=== PATIENT | female | born 1935 | race Caucasian/White ===

== ENCOUNTER 2016-11-19 04:38 | Inpatient (IN) ==
[2016-11-19] MEDS ORDERED: ASPIRIN PO STA (04:58)
--- NOTE | 2016-11-19 05:32 | EKG Report ---
Test Performed on : 11/19/2016 04:43:12 AM Test Reason : COUGHING/SOB Blood Pressure : / mmHG Vent. Rate : 084 BPM Atrial Rate : 088 BPM P-R Int : 000 ms QRS Dur : 096 ms QT Int : 380 ms P-R-T Axes : 000 058 -54 degrees QTc Int : 449 ms Atrial fibrillation. Possible Anterior infarct , age undetermined Abnormal ECG When compared with ECG of 11-MAR-2014 13:49, Atrial fibrillation. has replaced Sinus rhythm. Nonspecific T wave abnormality now evident in Inferior leads Unconfirmed Result
[2016-11-19 05:39] LABS: MANUAL DIFF NEEDED? NO
[2016-11-19] MEDS ORDERED: DUONEB (A & A) INH ONE (05:43)
[2016-11-19 05:50] LABS: BASO% 0.2 % (0.0-0.8); EOS# 0.04 X1000 (0.0-0.7); EOS% 0.7 % (0.0-10.0); HEMATOCRIT 50.4 % (37.0-47.0); HEMOGLOBIN 16.3 g/dL (12.0-16.0); LYMPH# 0.83 X1000 (1.2-3.4); LYMPH% 14.1 % (20.5-51.1); MCH 31.2 PG (27-31); MCHC 32.3 g/dL (33-37); MCV 96.6 FL (81-99); MONO# 0.59 X1000 (0.11-0.59); MPV 11.5 FL (7.4-10.4); PLT 122 X1000 (130-400); RBC 5.22 XMIL (4.2-5.4)
[2016-11-19 05:51] LABS: ALLEN TEST YES; BLOOD TYPE ARTERIAL; DRAW SITE R RADIAL; METHB 1.3 % (0.0-1.5); O2(CT) 19.4 mL/dL (15.0-23.0); PCO2(98.6) 44 mmHg (35-45); PO2(98.6) 52 mmHg (60-100); SAMPLE BLOOD; SAO2 92.5 % (95.0-100.0); THB 15.5 g/dL (11.5-17.4)
[2016-11-19 05:52] LABS: MODALITY ROOM AIR
[2016-11-19 05:56] LABS: PTT 35.2 Seconds (22.0-36.0)
[2016-11-19 06:24] LABS: INR 2.14; PROTIME 23.6 Seconds (9.2-11.7)
[2016-11-19 06:26] LABS: AGAP 16; ALBUMIN 3.3 g/dL (3.5-5.0); ALKALINE PHOSPHATASE 89 U/L (32-104); BUN 14 mg/dL (8-22); CALCIUM 8.8 mg/dL (8.8-10.2); CHLORIDE 101 mmol/L (98-107); CK PROFILE 60 U/L (24-173); COSMO 288; GOT 21 U/L (10-30); GPT 10 U/L (10-36); MAGNESIUM 1.8 mg/dL (1.5-2.7); POTASSIUM 3.5 mmol/L (3.5-5.1); SODIUM 144 mmol/L (136-145); TCO2 27 mmol/L (25-35); TOTAL BILIRUBIN 0.54 mg/dL (0.20-1.00); TOTAL PROTEIN 7.3 g/dL (6.3-8.3)
[2016-11-19] MEDS ORDERED: LASIX IV ONE (07:22)
[2016-11-19] MEDS ORDERED: LEVAQUIN 750 MG/D5W 750 MG/150 ML IVPB IV ONE (07:23)
--- NOTE | 2016-11-19 07:40 | PROVIDER DOCUMENTATION ---
HPI-Respiratory General - General Chief Complaint: Shortness of Breath Stated Complaint: COUGHING/SOB Time Seen by Provider: 11/19/16 06:11 Allergies/Adverse Reactions: Patient Allergies Allergy/AdvReac Type Severity Reaction Status Date / Time No Known Allergies Allergy Verified 01/05/13 12:54 Home Medications: Home Medication List Medication Instructions Recorded Confirmed Last Taken Type Furosemide [Lasix] 40 mg PO BID 01/05/13 03/10/14 03/09/14 20:00 History Sotalol HCl [Sotalol] 120 mg PO BID 01/05/13 03/10/14 03/10/14 08:00 History Warfarin [Coumadin] 5 mg PO QHS 01/05/13 03/10/14 03/09/14 21:30 History Vit A/Vit C/Vit E/Zinc/Copper 1 each PO DAILY 08/22/13 03/10/14 03/10/14 08:00 History [I-Caps Areds Softgel] Spironolactone 25 mg PO DAILY 03/10/14 03/10/14 03/09/14 08:00 History - History of Present Illness-Resp Nature of Presenting Problem: SOB with dry cough X 5 days, worsened since last night and started to have low grade fever. Pt uses C-PAP for ARACELI at home, but does not use home O2. Pt denies h/o DVT/PE/DMII/OK. Exertion makes the SOB worse. Quality of Pain: reports: none Severity in ED: reports: moderate Onset/Duration: reports: 5 days ago Timing: reports: still present Context: denies: recent foreign travel, recent URI, out of meds Exposure: reports: unknown cause Cough Quality/Degree: reports: no cough Modifying Factors: improves with: oxygen, rest. worse with: exertion, lying down Associated Symptoms: reports: cough, flu-like symptoms, nasal congestion, shortness of breath, short of breath. denies: wheezing Similar Symptoms Previously?: Yes Recently seen or treated by another doctor?: No Review of Systems - Adult - REVIEW OF SYSTEMS - ADULT Constitutional: reports: no symptoms reported, fever, fatique Eyes: reports: no symptoms reported Ears, Nose, Mouth & Throat: reports: no symptoms reported Cardiovascular: reports: no symptoms reported Respiratory: reports: see HPI, cough, dyspnea on exertion, shortness of breath, wheezing. denies: hemoptysis Gastrointestinal: reports: no symptoms reported Genitourinary: reports: no symptoms reported Musculoskeletal: reports: no symptoms reported Integumentary: reports: no symptoms reported All Other Systems: Reviewed and Negative Past History - Adult - PAST MEDICAL HISTORY-ADULT Review of Records: reports: Old Records Reviewed, Nursing Assessment Review, Medications Reviewed Cardiovascular: reports: A-Fib, CHF, HTN, heart valve problem (mitral valve-- repaired). denies: CAD - PRIOR SURGERIES/PROCEDURES Surgical/Procedure History: reports: other (cardiac ablation 2013, Mitral valve repair) Physical Exam-General - PHYSICAL EXAM-ADULT Initial Vital Signs Reviewed: Yes - CONSTITUTIONAL General Appearance: alert, no apparent distress - EYES Eyes: PERRL/EOMI, pink conjunctivae - HEAD, EARS, NOSE, MOUTH & THROAT HENMT: normocephalic/atraumatic, moist mucous membranes - NECK Neck: non-tender, full range of motion, supple - RESPIRATORY Respiratory: chest non-tender, no pleuratic chest pain, no respiratory distress , no accessory muscle use, rales, rhonchi, wheezing. negative: accessory muscle use, crackles - CARDIOVASCULAR Cardiovascular: normal peripheral pulses, regular rate, rhythm, no edema, no gallop - GASTROINTESTINAL (ABDOMEN) Abdominal Exam: normal bowel sounds, non tender, soft, no organomegaly - MUSCULOSKELETAL Extremity: normal range of motion, no calf tenderness, swelling, tenderness. negative: calf tenderness (2+ pitting edema b/l LE), erythema, inflammation - SKIN Integumentary: normal color, normal turgor, warm/dry - NEUROLOGIC Neurologic: grossly normal, no motor/sensory deficits - PSYCHIATRIC Psych/Mental Status: normal mood/affect, normal thought content, normal thought process, oriented x 3 Progress - PLAN OF CARE/RESULTS Progress/Plan/Lab Results: Vital Signs - 8 hr 11/19/16 04:50 11/19/16 05:45 11/19/16 06:07 Temperature 97.7 F Pulse Rate 84 77 76 Respiratory Rate 26 H 31 H 18 Blood Pressure 174/96 192/107 O2 Sat by Pulse Oximetry 92 L 90 L Laboratory Results - last 24 hr 11/19/16 11/19/16 11/19/16 05:10 05:10 05:10 WBC 5.90 RBC 5.22 Hgb 16.3 H Hct 50.4 H MCV 96.6 MCH 31.2 H MCHC 32.3 L RDW Std Deviation 14.5 Plt Count 122 L MPV 11.5 H Neut % (Auto) 75.0 Lymph % (Auto) 14.1 L Reeves % (Auto) 10.0 H Eos % (Auto) 0.7 Baso % (Auto) 0.2 Neut # (Auto) 4.43 Lymph # (Auto) 0.83 L Reeves # (Auto) 0.59 Eos # (Auto) 0.04 Baso # (Auto) 0.01 PT INR PTT (Actin FS) D-Dimer 0.56 H Specimen Type Sample Site pH pCO2 pO2 HCO3 Base Excess Oxyhemoglobin ABG O2 Sat (Calculated) ABG O2 Saturation ABG Carboxyhemoglobin ABG Methemoglobin Isaías Test A-a O2 Difference Total Hemoglobin Lactate Blood Gas Modality FiO2 % Sodium 144 Potassium 3.5 Chloride 101 Carbon Dioxide 27 Anion Gap 16 BUN 14 Creatinine 0.8 Estimated GFR/1.73 m2 > 60 BUN/Creatinine Ratio 18 Glucose 114 H Calculated Osmolality 288 Calcium 8.8 Magnesium 1.8 Total Bilirubin 0.54 AST 21 ALT 10 Alkaline Phosphatase 89 Creatine Kinase 60 Troponin T Oex-I-Twkjiwhcklq Pept Total Protein 7.3 Albumin 3.3 L Globulin 4.0 Albumin/Globulin Ratio 0.8 Plasma Lactate 11/19/16 11/19/16 11/19/16 05:10 05:10 05:10 WBC RBC Hgb Hct MCV MCH MCHC RDW Std Deviation Plt Count MPV Neut % (Auto) Lymph % (Auto) Reeves % (Auto) Eos % (Auto) Baso % (Auto) Neut # (Auto) Lymph # (Auto) Reeves # (Auto) Eos # (Auto) Baso # (Auto) PT 23.6 H INR 2.14 PTT (Actin FS) 35.2 D-Dimer Specimen Type Sample Site pH pCO2 pO2 HCO3 Base Excess Oxyhemoglobin ABG O2 Sat (Calculated) ABG O2 Saturation ABG Carboxyhemoglobin ABG Methemoglobin Isaías Test A-a O2 Difference Total Hemoglobin Lactate Blood Gas Modality FiO2 % Sodium Potassium Chloride Carbon Dioxide Anion Gap BUN Creatinine Estimated GFR/1.73 m2 BUN/Creatinine Ratio Glucose Calculated Osmolality Calcium Magnesium Total Bilirubin AST ALT Alkaline Phosphatase Creatine Kinase Troponin T < 0.010 Cbb-Q-Ytlllykdfst Pept 1706 H Total Protein Albumin Globulin Albumin/Globulin Ratio Plasma Lactate 11/19/16 11/19/16 05:10 05:41 WBC RBC Hgb Hct MCV MCH MCHC RDW Std Deviation Plt Count MPV Neut % (Auto) Lymph % (Auto) Reeves % (Auto) Eos % (Auto) Baso % (Auto) Neut # (Auto) Lymph # (Auto) Reeves # (Auto) Eos # (Auto) Baso # (Auto) PT INR PTT (Actin FS) D-Dimer Specimen Type ARTERIAL Sample Site R RADIAL pH 7.40 pCO2 44 pO2 52 L HCO3 26.2 H Base Excess 2.0 Oxyhemoglobin 89.2 L* ABG O2 Sat (Calculated) 19.4 ABG O2 Saturation 92.5 L ABG Carboxyhemoglobin 2.40 ABG Methemoglobin 1.3 Isaías Test YES A-a O2 Difference 43.0 Total Hemoglobin 15.5 Lactate 1.20 Blood Gas Modality ROOM AIR FiO2 % 21.0 Sodium Potassium Chloride Carbon Dioxide Anion Gap BUN Creatinine Estimated GFR/1.73 m2 BUN/Creatinine Ratio Glucose Calculated Osmolality Calcium Magnesium Total Bilirubin AST ALT Alkaline Phosphatase Creatine Kinase Troponin T Bwe-K-Racyouixcud Pept Total Protein Albumin Globulin Albumin/Globulin Ratio Plasma Lactate 2.0 Orders Category Date Time Status Cardiac Monitoring DIRECTED Care 11/19/16 04:59 Active Saline Loc NOW Care 11/19/16 04:59 Active CHEST-1 VIEW [RAD] Stat Exams 11/19/16 04:59 Taken ABG [RESP] Routine Lab 11/19/16 05:41 Completed BLOOD CULTURE [BLDCUL] Stat Lab 11/19/16 05:40 Received CBC WITH ELECTRONIC DIFF [HEME] Stat Lab 11/19/16 05:10 Completed CK PROFILE [SP CHEM] Stat Lab 11/19/16 05:10 Completed COMPREHENSIVE METABOLIC PANEL [CHEM] Stat Lab 11/19/16 05:10 Completed D-DIMER [CHEM] Stat Lab 11/19/16 05:10 Completed LACTATE, PLASMA [CHEM] Stat Lab 11/19/16 05:10 Completed MAGNESIUM [CHEM] Stat Lab 11/19/16 05:10 Completed PRO B-NATRIURETIC PEPTIDE Stat Lab 11/19/16 05:10 Completed PROTIME WITH INR [COAG] Stat Lab 11/19/16 05:10 Completed PTT [COAG] Stat Lab 11/19/16 05:10 Completed TROPONIN T Stat Lab 11/19/16 05:10 Completed Albuterol 2.5MG/Ipratrop 0.5MG [Duoneb (A & A)] Med 11/19/16 05:43 Discontinued 3 ml INH NOW ONE Furosemide [Lasix] Med 11/19/16 07:22 Discontinued 60 mg IV NOW ONE Levofloxacin 750 mg/D5w [Levaquin 750 mg/D5w] Med 11/19/16 07:23 Active 750 mg in 150 ml IV NOW Aerosol Treatments Routine Oth 11/19/16 05:44 Completed Aerosol Treatments Stat Oth 11/19/16 05:44 Completed EKG [EKG] Stat Ther 11/19/16 04:39 Draft Result Diagrams: 11/19/16 05:10 11/19/16 05:10 - XRAY 1 XRAY Study: Chest Impression: Abnormal (Pulmonary edema) - CONSULTS/PCP/HOSPITALIST Notification Time Discussed: 07:46 Reason/Comments: Admit to Dr. Hamilton Departure - Departure Time of Disposition Decision: 07:45 DIAGNOSIS: Dyspnea CHF (congestive heart failure) Qualifiers: Congestive heart failure type: unspecified congestive heart failure type Congestive heart failure chronicity: acute Qualified Code(s): I50.9 - Heart failure, unspecified Disposition: ADMITTED INPATIENT 09 Certified Medical Emergency: Emergent Condition: Stable Referrals and Follow-Ups: Fredis Hamilton MD [Primary Care Provider] -
--- NOTE | 2016-11-19 08:25 | Diag Imaging Result Document ---
PROCEDURE NAME: CHEST-1 VIEW - 11/19/2016 PORTABLE CHEST: COMPARISON: 03/10/2014. FINDINGS: The lungs are well expanded. The heart is enlarged. No consolidation. No pleural effusion is identified. IMPRESSION: Cardiomegaly.
[2016-11-19] MEDS ORDERED: SOLU-MEDROL IV ONE (08:30)
[2016-11-19] MEDS ORDERED: DOXYCYCLINE PO SCH (09:00)
[2016-11-19] MEDS: CARDIZEM CD PO SCH (10:30)
[2016-11-19] MEDS: ZYLOPRIM PO SCH (10:30)
[2016-11-19] MEDS: TOPROL XL PO SCH (10:31)
[2016-11-19] MEDS: DIOVAN PO SCH (10:31)
[2016-11-19] MEDS: ALBUTEROL NEB INH SCH ×3 (11:11→19:49)
--- NOTE | 2016-11-19 12:15 | CONSULTATION ---
DATE OF CONSULTATION: 11/19/2016 INDICATION: Congestive heart failure. HISTORY OF PRESENT ILLNESS: Ms Hernandez is an 80-year-old white female who previously followed with Dr. Owens, but currently follows with Dr. Meier. She was last seen in our office on the . She presented for complaints of shortness of breath that seemed to have been going on for around 24-48 hours with a much worse episode occurring around 3 o'clock in the morning. She woke up to go to the restroom and got up to ambulate to the bathroom. Upon ambulating back to the bed, she got extremely short of breath and subsequently was brought into the ER. She has noted a significant amount of wheezing at home. Her pCO2 was 44 on presentation with a PO2 of 52 and that was on room air. Her O2 saturation on that study was 92%. She has not reported any orthopnea or worsening of lower extremity edema. She does seem to have chronic issues with lower extremity edema. She previously was on Lasix and is unclear when that was discontinued, but was notably not on it during Dr. Meier's visit. PAST MEDICAL HISTORY: Her past medical history is significant for: 1. Atrial fibrillation that is chronic, maintained on Coumadin. 2. History of a minimally invasive mitral valve repair in 2006. 3. Hypertension. 4. History of DVT. 5. 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 SOCIAL HISTORY: She does not smoke. She is . Her is present in the room and at bedside. No tobacco. No alcohol or illicit drugs. FAMILY HISTORY: Significant for brother with coronary disease. REVIEW OF SYSTEMS: A 10 system review of systems is negative except for those things mentioned in HPI. PHYSICAL EXAMINATION: Vital signs: Presently she is afebrile. Her heart rate is 79. Her blood pressure is 170/99. Generally: She is in no acute distress. She is very pleasant. HEENT: Oropharynx is moist. Normal dentition. Eye examination is pink conjunctivae, white sclerae. Neck: Examination shows no obvious thyromegaly or thyroid tenderness. Cardiovascular: She sounds to be in an irregularly irregular rhythm consistent with atrial fibrillation rate controlled. She has 1 to 2+ chronic appearing lower extremity edema with chronic venous stasis changes. JVP was not visualized, but did not appear to be elevated. Chest: Notable for prominent and very loud expiatory wheezes heard throughout. No increased work of breathing. Abdomen: Soft, nontender, nondistended. No obvious organomegaly. Skin: Warm and dry throughout without any rashes. Neurological: She is moving all extremities well. Cranial nerves 2-12 are intact without any sensation deficits. PERTINENT DATA: She does have evidence for cardiomegaly on her chest x-ray. No pleural effusions. No infiltrates. EKG shows atrial fibrillation, rate of 84 beats per minute. Otherwise relatively unremarkable study. Her laboratory data shows a white count of 5.9. Hematocrit is 50. Platelet count is 122,000. INR is 2.14. D-dimer is 0.56. Her ABG is as detailed above in the HPI. Sodium 144, potassium 3.5. Her BUN is 14, creatinine 0.8. Magnesium level is 1.8. ProBNP is 1706. Albumin is a little bit low at 3.3. ASSESSMENT: Dyspnea likely multifactorial and consisting of possible diastolic heart failure as well as potentially reactive airways disease. PLAN: She currently is on albuterol. In addition, Lasix has been provided. We will follow up with laboratories in the morning. An echo has been ordered. I have instructed her in a low- sodium diet. We will continue to follow with you. She is currently on Levaquin as well as IV steroids. cc: MD Fredis Fontaine MD
[2016-11-19] MEDS: COUMADIN PO SCH (20:09)
[2016-11-19] MEDS: LASIX IV SCH (20:10)
[2016-11-19] MEDS: DOXYCYCLINE PO SCH (20:31)
[2016-11-19] MEDS: SOLU-MEDROL IV SCH (20:31)
--- NOTE | 2016-11-20 02:24 | HISTORY AND PHYSICAL ---
CHIEF COMPLAINT: Shortness of breath. PRESENT ILLNESS: Ms. Hernandez is an 80-year-old woman with a long history of obstructive sleep apnea, mitral valve repair for mitral insufficiency, chronic atrial fibrillation. She presented to the emergency room early this morning with a 3-4 day history of increasing shortness of breath, cough, productive of scant sputum. She denies any fever or chills. She has had several days of a scratchy throat and runny nose. She was followed by Dr. Owens, but has seen Dr. Meier once and was scheduled for an outpatient echocardiogram later this week. She denies any chest pain. She has had minimal, if any orthopnea and no PND. She sleeps sometimes with CPAP, but often without it. She has a long history of mild polycythemia and I have suspected nocturnal hypoxemia. I do not recall any previous episodes of congestive heart failure. PAST MEDICAL HISTORY: Remarkable for chronic atrial fibrillation, carotid atherosclerosis, essential hypertension, obstructive sleep apnea, mitral insufficiency. PAST SURGICAL HISTORY: Remarkable for minimally invasive mitral valve repair in 2006 at [place]. HOME MEDICATIONS: Coumadin 5 mg at bedtime, fish oil 1000 mg daily, allopurinol 200 mg daily, diltiazem CD 180 mg daily, furosemide 40 mg daily, indomethacin p.r.n. for gout, metoprolol ER 100 mg daily, valsartan/hydrochlorothiazide 160/25 one daily for hypertension. FAMILY HISTORY: Father had a stroke. Siblings with a history of heart attacks and seizures. SOCIAL HISTORY: She is and lives with her . She does not use alcohol or tobacco. She is Yars[place]ism of [place]. IMMUNIZATIONS: She has had a previous Pneumovax in 2006. REVIEW OF SYSTEMS: General: No fever, chills, night sweats, weight loss or sleep difficulty. HEENT: Vision and hearing are normal without recent changes. She has some age-related macular degeneration. Cardiovascular: No recent chest pain, diaphoresis, dizziness. She has chronic ankle and pedal edema. No palpitations, PND, syncope. ProBNP 2-1/2 years ago was 1300. Respiratory: See HPI. GI: Appetite has been good. No abdominal pain, constipation, diarrhea, hematemesis, melena, nausea or vomiting. : No dysuria, hematuria or nocturia. Musculoskeletal: She is on allopurinol for recurrent attacks of gout. Some mild degenerative aching as well. Neurologic: No dizziness or falls. No history of head trauma. She has a mild intention tremor which is improved on metoprolol. PSYCHOLOGIC: No history of memory, mood or thought disorders.Endocrine: No history of diabetes mellitus thyroid disease. She was recently started on very low dose of thyroxine. Hematologic: No abnormal bleeding or easy bruising. PHYSICAL EXAMINATION: VITAL SIGNS: Temperature is 98.2 degrees, blood pressure 133/87, pulse 75, respirations 22, O2 saturation 96% on 2 L, 90% on room air. GENERAL APPEARANCE: Obese elderly white female, somewhat plethoric face in no acute distress. HEENT EXAM: Extraocular movements are intact. Pupils equal, round, reactive to light. Oropharynx is benign. NECK: Supple with no adenopathy, JVD, thyromegaly or bruits. CARDIOVASCULAR: Irregularly irregular rhythm. Apical rate of 82. S1-S2 are unremarkable. I do not appreciate an S3 or an S4. She has moderate brawny edema both ankles and lower legs. LUNGS: There is diffuse musical wheezing throughout with perhaps a few crackles in both bases. Air movement is fair with some prolongation of expiratory phase. ABDOMEN: Soft, minimally obese and nontender with no organomegaly. Bowel sounds are unremarkable. MUSCULOSKELETAL: She has 2+ Heberden's nodes at multiple PIP joints. Pedal pulses are difficult to palpate due to edema. DERMATOLOGIC: Normal skin turgor. No rashes. Her skin on her lower legs is intact without weeping but there are mild to moderate stasis changes present. NEUROLOGIC EXAM: She is alert, responsive and talkative with normal mental status. Cranial nerve examination is unremarkable and not appreciate any focal asymmetry. PSYCHIATRIC: She is alert and oriented with appropriate mood and affect. DATABASE: Chest x-ray shows cardiomegaly without obvious infiltrates or effusions or pulmonary vascular redistribution. Her white blood count 5900, hemoglobin 16.3, hematocrit 50.4%, platelet count is 122,000. INR is 2.14. ABG on room air pH 7.4, pCO2 44, PO2 52. Chemistry profile. Electrolytes are normal. BUN and creatinine 14 and 0.8, glucose 114. Liver enzymes are normal. Albumin 3.3, proBNP 1706, CPK and troponin are negative. ASSESSMENT: 1. Acute dyspnea with hypoxemia probably due to asthmatic bronchitis although cannot exclude small component of congestive heart failure. 2. Chronic atrial fibrillation on warfarin with therapeutic INR. 3. Obstructive sleep apnea with polycythemia, suspect intermittent compliance. 4. History of mitral regurgitation, status post repair. 5. Chronic pedal edema probably due to venous valvular incompetence. TREATMENT PLAN: She is much improved after some breathing treatments and I ordered cautious IV Solu-Medrol and a Cardiology consult. She will probably require several days in the hospital to improve so I made her full inpatient admission. cc: Fredis Hamilton MD
[2016-11-20 07:56] LABS: AGAP 15; BUN 18 mg/dL (8-22); CALCIUM 9.2 mg/dL (8.8-10.2); CHLORIDE 98 mmol/L (98-107); COSMO 286; POTASSIUM 3.2 mmol/L (3.5-5.1); SODIUM 141 mmol/L (136-145); TCO2 28 mmol/L (25-35)
[2016-11-20] MEDS: ALBUTEROL NEB INH SCH ×4 (08:20→20:15)
[2016-11-20] MEDS: TOPROL XL PO SCH (09:25)
[2016-11-20] MEDS: DOXYCYCLINE PO SCH ×2 (09:25→23:29)
[2016-11-20] MEDS: SOLU-MEDROL IV SCH ×2 (09:25→23:29)
[2016-11-20] MEDS: LASIX IV SCH ×2 (09:25→23:29)
[2016-11-20] MEDS: DIOVAN PO SCH (09:25)
[2016-11-20] MEDS: CARDIZEM CD PO SCH (09:25)
[2016-11-20] MEDS: ZYLOPRIM PO SCH (09:26)
[2016-11-20] MEDS: KLOR-CON PO SCH ×2 (09:26→23:29)
--- NOTE | 2016-11-20 13:13 | ECHO REPORT ---
ORDER DATE: 11/19/2016 INDICATION: An 80-year-old female with CHF and mitral valve disease. M-MODE MEASUREMENTS: Parasternal windows were poor. Right ventricle: 2.8 cm. Left atrium: 4.4 cm. Aortic root: 3.2 cm. SUMMARY OF 2-DIMENSIONAL IMAGIN. Left ventricular function is normal with an ejection fraction of 56% or better. In some views it is 60% or better. 2. Acoustic windows are limited. 3. The mitral valve shows calcification and the leaflets of the mitral valve appear to be slightly restricted. Maximum gradient across the mitral valve is 9 mm. Mean gradient is 4 mm. Color flow mapping indicates a mild degree of regurgitation. The patient probably has a trivial degree of mitral valve stenosis. 4. The aortic valve shows sclerosis. Color flow mapping indicates a mild degree of regurgitation. There is no evidence of any significant gradient across the outflow tract of the left ventricle. 5. The tricuspid valve shows a [id number]-dx-qwhefjbn degree of regurgitation. 6. The inferior vena cava is mildly enlarged. 7. Pulmonary pressure is estimated on the order of 42 mmHg to 47 mmHg. 8. The pulmonic valve looks normal. Color flow mapping indicates mild regurgitation. 9. There is no pericardial effusion and no sign of thrombus. 10.The atria are probably mildly enlarged although the visualization of them is difficult due to the patient's obesity. SUMMARY: In summary, this study shows: 1. Normal left ventricular systolic function. 2. Calcification of the mitral annulus with a mild degree of mitral valve stenosis and mild degree of regurgitation. 3. Ryia-la-pxzcknob pulmonary hypertension on the order of 42 mmHg to 47 mmHg. 4. Mild degree of aortic regurgitation. There is no aortic stenosis. Clinical correlation is recommended. cc: MD Fredis Hidalgo MD
[2016-11-20] MEDS: COUMADIN PO SCH (23:29)
[2016-11-21] MEDS: LASIX IV SCH (08:21)
[2016-11-21] MEDS: ZYLOPRIM PO SCH (08:21)
[2016-11-21] MEDS: CARDIZEM CD PO SCH (08:21)
[2016-11-21] MEDS: KLOR-CON PO SCH (08:21)
[2016-11-21] MEDS: TOPROL XL PO SCH (08:22)
[2016-11-21] MEDS: DIOVAN PO SCH (08:22)
[2016-11-21] MEDS: DOXYCYCLINE PO SCH (08:23)
[2016-11-21] MEDS: SOLU-MEDROL IV SCH (08:23)
[2016-11-21 08:49] VITALS: BP 152/95
[2016-11-21] MEDS: ALBUTEROL NEB INH SCH (08:59)
--- NOTE | 2016-11-21 10:01 | DISCHARGE SUMMARY ---
ADMISSION DATE: 11/19/2016 DISCHARGE DATE: FINAL DIAGNOSES: 1. Acute asthmatic bronchitis with hypoxemia. 2. Obstructive sleep apnea with polycythemia. 3. Chronic atrial fibrillation. 4. Mitral valve insufficiency, status post mitral valve repair. 5. Essential hypertension. PRESENT ILLNESS: Mrs. Hernandez is an 80-year-old woman with a long history of the above medical problems, who presented to the emergency room with a 3-4 day history of increasing shortness of breath, cough, without fever or chills. PHYSICAL EXAMINATION: General Appearance/Vital Signs: Revealed an O2 saturation 90% on room air. She is somewhat plethoric, obese, elderly white female, in no acute distress. Lung Examination: Was remarkable for diffuse musical wheezing throughout. Perhaps very rare crackles in both bases. Air movement was fair with prolonged expiratory phase. DIAGNOSTICS: Chest x-ray showed cardiomegaly without obvious infiltrates or effusions, or pulmonary vascular distribution. Her white blood count was normal. Hemoglobin 16.3, hematocrit 50.4%. ABG on room air pH 7.4, pCO2 44, pO2 52. HOSPITAL COURSE: She was admitted to the medical floor and placed on gambling monitor and treated for both asthmatic bronchitis and congestive heart failure. Was seen in consultation by cardiology and echocardiogram documented normal left ventricular function. She did have calcification of the mitral annulus and a mild degree of stenosis and regurgitation. She had mild pulmonary hypertension and mild aortic regurgitation. With oral antibiotics and IV Solu-Medrol, her wheezing rapidly resolved. At the time of discharge she is moving air well with no wheezing and has a room air saturation of 98%. She did have some intermittent confusion at night and I feel this is probably a transient steroid effect and that the best treatment is to return home to her usual surroundings. I discussed with the family we will do some memory testing when she returns. DISCHARGE MEDICATIONS: 1. Doxycycline 100 mg daily for 5 days. 2. Prednisone 20 mg q.a.m. for 5 days. 3. Toprol-XL 100 mg daily. 4. Valsartan 80 mg daily. 5. Warfarin 5 mg at bedtime. 6. Allopurinol 100 mg, two tablets daily. 7. Diltiazem XT 180 mg daily. cc: MD SHELLIE Owusu
== END 2016-11-21 10:05 | disposition home or self-care (01) ==
LOC: ED 04:38 → 3N 09:09
PROVIDERS: ADMIT Internal Medicine; ATTEND Internal Medicine

== ENCOUNTER 2018-12-13 00:37 | Inpatient (IN) ==
[2018-12-13 02:16] LABS: BASO# 0.01 X1000 (0.0-0.2); BASO% 0.1 % (0.0-0.8); EOS# 0.12 X1000 (0.0-0.7); EOS% 1.1 % (0.0-10.0); HEMATOCRIT 45.4 % (37.0-47.0); HEMOGLOBIN 14.9 g/dL (12.0-16.0); IMM GRAN# 0.04 X1000 (0.0-0.04); IMM GRAN% 0.4 % (0.0-0.5); LYMPH# 0.92 X1000 (1.2-3.4); LYMPH% 8.3 % (20.5-51.1); MCH 31.9 PG (27-31); MCHC 32.8 g/dL (33-37); MCV 97.2 FL (81-99); MONO# 1.15 X1000 (0.11-0.59); MONO% 10.4 % (1.7-9.3); MPV 10.5 FL (7.4-10.4); NEUT# 8.78 X1000 (1.4-6.5); NEUT% 79.7 % (42.2-75.2); PLT 159 X1000 (130-400); RBC 4.67 XMIL (4.2-5.4); RDW 12.6 % (11.5-14.5); WBC 11.02 X1000 (4.8-10.8)
[2018-12-13 03:08] LABS: ALB/GLOB RATIO 1.2; CALCIUM 8.4 mg/dL (8.8-10.2); CREATININE 1.1 mg/dL (0.5-0.9); POTASSIUM 3.6 mmol/L (3.5-5.1); TOTAL BILIRUBIN 0.4 mg/dL (0.20-1.00); TOTAL PROTEIN 5.6 g/dL (6.3-8.3)
--- NOTE | 2018-12-13 07:03 | Diag Imaging Result Doc PS360 ---
EXAM: CHEST-PORTABLE HISTORY: possible hemothorax TECHNIQUE: Portable chest single view COMPARISON: 12/11/2018 FINDINGS: The heart is enlarged. There are infiltrates in the mid and lower left lung with small left effusion. No change in the right portacatheter. Right lung is clear. IMPRESSION: Left lower lung infiltrates and atelectasis with a small pleural effusion Electronically signed by Ahmet Mark 12/13/2018 7:01 AM
--- NOTE | 2018-12-13 07:04 | PROVIDER DOCUMENTATION ---
This chart was entered by Lyndsey Lozano Scribe, acting as scribe for Markus Cruz MD. HPI-Abdominal Pain/GI Problem - General Source: patient - History of Present Illness-ABD Nature of Presenting Problems: pt is 82/F presenting to ED w/ L breast pain that radiates through to her shoulders. Pt sts that the pain has felt better since she has been in the ED. She had fluid drained from pleural effusion yesterday and was todl to come to the ED if she had sharp pains. Pt has hx of HTN, CHF L breast can and pleural effusions. Abdominal Pain Onset Location: reports: [facility] Pain Radiation: reports: shoulder (L shoulder) Quality of Pain: reports: stabbing Severity in ED: reports: mild Onset/Duration: reports: just prior to arrival Timing: reports: gone now Activities at Onset: reports: none Exposure to sick contacts?: No Modifying Factors: improves with: nothing Associated Symptoms: reports: denies symptoms. denies: cough Last BM: unsure Rectal Pain: reports: none Bruising or Bleeding Gums?: No Similar Symptoms Previously?: No Recently seen or treated by another doctor?: No <Markus Cruz - Last Filed: 12/13/18 07:03> <Lexis Thomas - Last Filed: 12/13/18 07:53> - General Stated Complaint: sever back pain / abdominal pain Time Seen by Provider: 12/13/18 01:21 Allergies/Adverse Reactions: Patient Allergies Allergy/AdvReac Type Severity Reaction Status Date / Time No Known Allergies Allergy Verified 12/11/18 07:08 Home Medications: Home Medication List Medication Instructions Recorded Confirmed Last Taken Type Ranitidine [Zantac] 150 mg PO DAILY 04/17/17 12/11/18 12/11/18 07:00 History Donepezil HCl 1 tab PO DAILY 02/07/18 12/11/18 12/11/18 07:00 History Acetaminophen [Tylenol] 650 mg PO Q4H PRN PRN tablet 02/12/18 12/11/18 2 Weeks Ago Rx ~11/27/18 Diltiazem C.d. [Cardizem Cd] 180 mg PO DAILY capsule 02/12/18 12/11/18 12/11/18 07:00 Rx Ipratropium 0.03% Nasal Walsh 2 spray HELEN QAM #1 bottle 02/12/18 12/11/18 12/11/18 07:00 Rx [Atrovent 0.03% Nasal Walsh] Metoprolol Succinate E.r. [Toprol 50 mg PO QHS #39 tab 02/12/18 12/11/18 12/11/18 07:00 Rx Xl] Potassium Chloride E.r. [Klor-Con] 10 meq PO BID tablet 02/12/18 12/11/18 12/11/18 07:00 Rx Rivaroxaban [Xarelto] 10 mg PO DAILY tablet 02/12/18 12/11/18 12/09/18 Rx Losartan Potassium 25 mg PO DAILY 12/11/18 12/11/18 12/11/18 07:00 History Torsemide 100 mg PO DAILY 12/11/18 12/11/18 12/11/18 07:00 History Review of Systems - Adult - REVIEW OF SYSTEMS - ADULT Constitutional: reports: no symptoms reported. denies: chills, fever Eyes: reports: no symptoms reported Ears, Nose, Mouth & Throat: reports: no symptoms reported Cardiovascular: reports: chest pain (L chest pain, under breast) Respiratory: reports: no symptoms reported Gastrointestinal: reports: abdominal pain Genitourinary: reports: no symptoms reported Musculoskeletal: reports: no symptoms reported Integumentary: reports: no symptoms reported Neurological: reports: no symptoms reported. denies: headache/migraines Psychiatric: reports: no symptoms reported Endocrine: reports: no symptoms reported Hematologic/Lymphatic: reports: no symptoms reported Allergic/Immunologic: reports: no symptoms reported All Other Systems: Reviewed and Negative <Markus Cruz - Last Filed: 12/13/18 07:03> Past History - Adult - PAST MEDICAL HISTORY-ADULT Review of Records: reports: Old Records Reviewed, Nursing Assessment Review, Medications Reviewed, Social history reviewed & non-contributory. Major Childhood Illnesses: reports: denies history Cardiovascular: reports: A-Fib, CHF, HTN, heart valve problem (mitral valve--repaired). denies: CAD Respiratory: reports: denies history Gastrointestinal: reports: denies history Obstetrical/Gynecological: reports: denies history Genitourinary: reports: denies history Musculoskeletal: reports: denies history Neurological: reports: denies history Psychiatric: reports: denies history Endocrine/Immune: reports: denies history Other Conditions: reports: denies history - PRIOR SURGERIES/PROCEDURES Surgical/Procedure History: reports: reviewed, not pertinent, other (cardiac ablation 2013, Mitral valve repair) - IMMUNIZATION STATUS Childhood Immunizations: See Nurse Assessment Flu Vaccine: See Nurse Assessment - FAMILY HISTORY Family History: reviewed, not pertinent - SOCIAL HISTORY Living Situation: family <Markus Cruz - Last Filed: 12/13/18 07:03> Physical Exam-General - PHYSICAL EXAM-ADULT Initial Vital Signs Reviewed: Yes - CONSTITUTIONAL General Appearance: appears well, alert, no apparent distress - EYES Eyes: PERRL/EOMI, pink conjunctivae - HEAD, EARS, NOSE, MOUTH & THROAT HENMT: normocephalic/atraumatic, moist mucous membranes, normal ENT inspection, TMs normal, pharynx normal - NECK Neck: non-tender, full range of motion, normal inspection - RESPIRATORY Respiratory: chest non-tender, lungs clear, normal breath sounds - CARDIOVASCULAR Cardiovascular: regular rate, rhythm - GASTROINTESTINAL (ABDOMEN) Abdominal Exam: normal bowel sounds, non tender, soft - LYMPHATIC Lymphatic: no adenopathy - MUSCULOSKELETAL Back Exam: normal inspection, no CVA tenderness, no vertebral tenderness Extremity: normal range of motion, non-tender, normal gait, normal inspection - SKIN Integumentary: normal color, normal turgor, warm/dry - NEUROLOGIC Neurologic: surgical dressing maker II-XII nml as tested, grossly normal, no motor/sensory deficits - PSYCHIATRIC Psych/Mental Status: normal mood/affect, normal thought content, normal thought process, oriented x 3 <Markus Cruz - Last Filed: 12/13/18 07:03> Progress - PLAN OF CARE/RESULTS Progress/Plan/Lab Results: Vital Signs - 8 hr 12/13/18 00:52 Temperature 98.5 F Pulse Rate 79 Respiratory Rate 18 Blood Pressure 100/61 O2 Sat by Pulse Oximetry 93 L Orders Category Date Time Status CHEST-PORTABLE [RAD] Stat Exams 12/13/18 00:45 Taken BNP [PRO B-NATRIURETIC PEPTIDE] Stat Lab 12/13/18 01:25 Uncollected CBC WITH ELECTRONIC DIFF [HEME] Stat Lab 12/13/18 00:45 Uncollected CK PROFILE [SP CHEM] Stat Lab 12/13/18 00:45 Uncollected COMPREHENSIVE METABOLIC PANEL [CHEM] Stat Lab 12/13/18 00:45 Uncollected TROPONIN T Stat Lab 12/13/18 00:45 Uncollected EKG [EKG] Stat Ther 12/13/18 01:25 Ordered Result Diagrams: 12/13/18 02:02 12/13/18 02:02 - EKG 1 Time of EKG reading by physician:: 02:12 EKG Read and Signed by:: Markus Cruz EKG Interpretation (*Must complete 3 of following elements*): Abnormal (atrial fibrillation with a competing junctional pacemaker. Low voltage QRS Cannot rule out anterior infarct, age undetermined Abnormal ECG) Rate: 83 Rhythm: paced rhythm [place]: normal QRS: normal [place] Interval: normal ST Wave: normal - CHANGE OF SHIFT REPORT (ED Provider) 1 Report Given and Care Transferred to:: Dr Thomas Time of Transfer: 07:00 Items Pending: Labs, XRAY Results <Markus Cruz - Last Filed: 12/13/18 07:03> - PLAN OF CARE/RESULTS Progress/Plan/Lab Results: Vital Signs - 8 hr 12/13/18 00:52 12/13/18 01:08 12/13/18 04:00 Temperature 98.5 F Pulse Rate 79 Respiratory Rate 18 Blood Pressure 100/61 105/61 O2 Sat by Pulse Oximetry 93 L 94 L 92 L 12/13/18 04:30 Temperature Pulse Rate Respiratory Rate Blood Pressure O2 Sat by Pulse Oximetry 95 Laboratory Results - last 24 hr 12/13/18 12/13/18 12/13/18 02:02 02:02 02:02 WBC 11.02 H RBC 4.67 Hgb 14.9 Hct 45.4 MCV 97.2 MCH 31.9 H MCHC 32.8 L RDW Std Deviation 12.6 Plt Count 159 MPV 10.5 H Immature Gran % (Auto) 0.4 Neut % (Auto) 79.7 H Lymph % (Auto) 8.3 L [place] % (Auto) 10.4 H Eos % (Auto) 1.1 Baso % (Auto) 0.1 Immature Gran # (Auto) 0.04 Neut # (Auto) 8.78 H Lymph # (Auto) 0.92 L [place] # (Auto) 1.15 H Eos # (Auto) 0.12 Baso # (Auto) 0.01 Sodium 140 Potassium 3.6 Chloride 98 Carbon Dioxide 28 Anion Gap 14 BUN 24 H Creatinine 1.1 H Estimated GFR/1.73 m2 47 BUN/Creatinine Ratio 22 Glucose 99 Calculated Osmolality 283 Calcium 8.4 L Total Bilirubin 0.40 AST 16 ALT 10 Alkaline Phosphatase 91 Creatine Kinase 71 Troponin T 0.015 Vao-M-Zqatczviiln Pept Total Protein 5.6 L Albumin 3.0 L Globulin 2.6 Albumin/Globulin Ratio 1.2 12/13/18 02:02 WBC RBC Hgb Hct MCV MCH MCHC RDW Std Deviation Plt Count MPV Immature Gran % (Auto) Neut % (Auto) Lymph % (Auto) [place] % (Auto) Eos % (Auto) Baso % (Auto) Immature Gran # (Auto) Neut # (Auto) Lymph # (Auto) [place] # (Auto) Eos # (Auto) Baso # (Auto) Sodium Potassium Chloride Carbon Dioxide Anion Gap BUN Creatinine Estimated GFR/1.73 m2 BUN/Creatinine Ratio Glucose Calculated Osmolality Calcium Total Bilirubin AST ALT Alkaline Phosphatase Creatine Kinase Troponin T Qnm-N-Wfxsxanzpcb Pept 1216 H Total Protein Albumin Globulin Albumin/Globulin Ratio Orders Category Date Time Status CHEST-PORTABLE [RAD] Stat Exams 12/13/18 00:45 Completed BLOOD CULTURE [BLDCUL] Stat Lab 12/13/18 07:36 Uncollected BNP [PRO B-NATRIURETIC PEPTIDE] Stat Lab 12/13/18 02:02 Completed CBC WITH ELECTRONIC DIFF [HEME] Stat Lab 12/13/18 02:02 Completed CK PROFILE [SP CHEM] Stat Lab 12/13/18 02:02 Completed COMPREHENSIVE METABOLIC PANEL [CHEM] Stat Lab 12/13/18 02:02 Completed LACTATE, PLASMA [CHEM] Stat Lab 12/13/18 07:36 Uncollected TROPONIN T Stat Lab 12/13/18 02:02 Completed CefTRIAXONE [Rocephin] 1 gm Med 12/13/18 07:37 Active 0.9% Sodium Chloride Inj [Ns] 50 ml IV NOW EKG [EKG] Stat Ther 12/13/18 01:25 Ordered Result Diagrams: 12/13/18 02:02 12/13/18 02:02 - CONSULTS/PCP/HOSPITALIST Notification #1 *Consult/PCP/Hospitalist*: Dr. العلي Time Discussed: 07:53 Consult Disposition: Will see in ED, Admit <Lexis Thomas - Last Filed: 12/13/18 07:53> Departure <Markus Cruz - Last Filed: 12/13/18 07:03> - Departure Date of Disposition Decision: 12/13/18 Time of Disposition Decision: 07:51 Certified Medical Emergency: Emergent - Critical Care Note This patient required my direct & personal management of CC.: No <Lexis Thomas - Last Filed: 12/13/18 07:53> - Departure DIAGNOSIS: Pneumonia, CHF (congestive heart failure) Disposition: ADMITTED INPATIENT 09 Condition: Good Referrals and Follow-Ups: Fredis Hamilton MD [Primary Care Provider] - Attestation - Physician/ RADHA Attestation Patient care was provided by Advanced Practice Provider:: No The physician spent face to face time with patient:: Yes Advanced Practice Provider documentation review:: Supervising physician onsite and consulted in the evaluation and care of this patient. The physician did have a face to face encounter with the patient. <Markus Cruz - Last Filed: 12/13/18 07:03> - Physician/ RADHA Attestation The physician spent face to face time with patient:: Yes Advanced Practice Provider documentation review:: Supervising physician onsite and consulted in the evaluation and care of this patient. The physician did have a face to face encounter with the patient. <Lexis Thomas - Last Filed: 12/13/18 07:53> This chart was documented by the indicated scribe, (Lyndsey Lozano Scribe) and accurately reflects the services I performed and decisions made by me, Markus Cruz MD, as attested by the provider's signature.
[2018-12-13] MEDS ORDERED: ROCEPHIN 1 GM in NS 50 ML IV ONE (07:37)
--- NOTE | 2018-12-13 08:27 | HISTORY AND PHYSICAL ---
HISTORY OF PRESENT ILLNESS: He is an 82-year-old patient of Dr. Fredis Hamilton. Apparently had lung pleurocentesis done on Friday (this is Friday). Complaining of some shortness of breath and nonproductive cough or she had just white sputum by her description and just general malaise. Came into the emergency room mainly with shortness of breath and appears she has a left sided pneumonia. 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 She has had history of carotid atherosclerosis and hypertension. PAST SURGICAL HISTORY: Mitral valve replacement. ALLERGIES: No known drug allergies. FAMILY HISTORY: Noncontributory. SOCIAL HISTORY: Denies use of tobacco, alcohol, or illicit drugs. REVIEW OF MEDICATIONS: She appears to be on diltiazem 180 mg b.i.d., Aricept 5 mg a day, Lasix 40 mg a day, metoprolol 100 mg a day, Zantac 150 mg b.i.d., Xarelto 10 mg a day, Lasix 40 mg a day, Diovan 80 mg a day. REVIEW OF SYSTEMS: General: No weight gain or loss. No fever or chills. By her report, just general malaise and cough. HEENT: No change in visual or hearing acuity. Respiratory: Increased dyspnea with exertion and cough and bronchial irritation. Cardiovascular: No chest pain or tachy palpitation. Gastrointestinal and Genitourinary: No gross hematuria, dysuria. Musculoskeletal/Neurologic: No significant complaints. Endocrinologic/hematologic: No significant history. Skin: No rashes or adenopathy reported. PHYSICAL EXAMINATION: VITAL SIGNS: Temperature 98.5 degrees, pulse 79, respirations 18, blood pressure 105/61. HEENT: Pupils are equal round. LUNGS: Clear anterolateral and posterior. CVP less than 6 cm from the right atrium. CARDIOVASCULAR: Regular rhythm and rhythm and rate without murmur or S3. ABDOMEN: Soft. SKIN: Warm and dry. Height 5 feet 7 inches. No pedal edema. Skin without rash. No lesions seen in oral or nasal mucosa. NECK: Supple. No thyromegaly. LABORATORY STUDIES: White count 11,020, hematocrit 45, platelet count 159,000. Sodium 140, potassium 3.6, chloride 98, BUN 24, creatinine 1.1, calcium 8.4, AST 16, ALT 10. Troponin 0.015. Albumin 3.0. Chest x-ray: Left lower lung infiltrate, atelectasis, a small pleural effusion. REVIEW OF HER CURRENT MEDICINE LIST: She is taking Tylenol 650 mg q.4 h. p.r.n., diltiazem CD 180 mg a day, donepezil 1 tablet daily, Atrovent 0.03% nasal spray 2 puffs each nostril daily, losartan 25 mg a day, metoprolol ER 50 mg p.o. at bedtime, potassium chloride ER 10 mEq b.i.d., Zantac 150 mg daily, Xarelto 10 mg a day. LABORATORY STUDIES: Her lab unremarkable. White count mildly elevated. ASSESSMENT AND PLAN: 1. Left-sided infiltrate. She did have her lung tapped, so I will treat her as a community- acquired pneumonia, but broaden the spectrum for possible gram-negative coverage including Pseudomonas. We will give her some bronchodilators and follow another chest x-ray in the morning. 2. History of atrial fibrillation, rate appears controlled. 3. Mitral valve replacement, aware. 4. History of breast cancer, distant history. 5. History of sleep apnea, wears a CPAP. We will check her thyroid, B12, and folate while she is here. Check a sputum for culture. Obtain blood cultures as well and also check a urine for culture. She is not complaining of any urinary symptoms. cc: Isaías العلي MD MTDD
[2018-12-13 08:51] LABS: URINE SOURCE CLEAN CATCH
[2018-12-13 08:59] LABS: BILIRUBIN URINE NEGATIVE (NEGATIVE); BLOOD URINE NEGATIVE (NEGATIVE); COLOR YELLOW; GLUCOSE URINE NEGATIVE (NEGATIVE); KETONE URINE NEGATIVE (NEGATIVE); LEUKOCYTES URINE MODERATE (NEGATIVE); NITRITE URINE NEGATIVE (NEGATIVE); PH URINE 5.5; PROTEIN URINE NEGATIVE (NEGATIVE); SP GRAVITY URINE 1.007; TURBIDITY URINE CLEAR (CLEAR); UROBILINOGEN URINE NORMAL (NORMAL)
[2018-12-13 09:00] LABS: UR EPITHELIAL CELLS <10 /HPF (<10); URINE BACTERIA 4+ /HPF; URINE RBC <10 /HPF (<10)
[2018-12-13] MEDS ORDERED: TYLENOL PO PRN ×2 (09:56)
[2018-12-13] MEDS ORDERED: NS 1,000 ML IV SCH (09:56)
[2018-12-13] MEDS ORDERED: DEMADEX PO SCH (09:56)
[2018-12-13] MEDS ORDERED: ATROVENT 0.03% NASAL SPRAY NAS PRN (09:56)
[2018-12-13] MEDS ORDERED: VANCOMYCIN IV PER PHARMACY MISC SCH (09:56)
[2018-12-13] MEDS: DUONEB (A & A) INH SCH ×4 (11:45→23:40)
[2018-12-13] MEDS ORDERED: VANCOMYCIN 1,500 MG in NS 250 ML IV SCH (13:00)
[2018-12-13] MEDS: KLOR-CON PO SCH ×2 (13:17→23:00)
[2018-12-13] MEDS: ZANTAC PO SCH (13:17)
[2018-12-13] MEDS: DEMADEX PO SCH (13:18)
[2018-12-13] MEDS: COZAAR PO SCH (13:18)
[2018-12-13] MEDS: CARDIZEM CD PO SCH (13:18)
[2018-12-13] MEDS: ARICEPT PO SCH (13:18)
[2018-12-13] MEDS: XARELTO PO SCH (13:18)
[2018-12-13] MEDS: TOPROL XL PO SCH (23:00)
[2018-12-14 07:06] LABS: BASO# 0.01 X1000 (0.0-0.2); BASO% 0.1 % (0.0-0.8); EOS# 0.15 X1000 (0.0-0.7); EOS% 1.9 % (0.0-10.0); HEMATOCRIT 48.2 % (37.0-47.0); HEMOGLOBIN 15.6 g/dL (12.0-16.0); IMM GRAN# 0.02 X1000 (0.0-0.04); IMM GRAN% 0.3 % (0.0-0.5); LYMPH% 10.3 % (20.5-51.1); MCH 31.8 PG (27-31); MCHC 32.4 g/dL (33-37); MCV 98.4 FL (81-99); MONO# 0.75 X1000 (0.11-0.59); MONO% 9.6 % (1.7-9.3); MPV 10.6 FL (7.4-10.4); NEUT# 6.05 X1000 (1.4-6.5); NEUT% 77.8 % (42.2-75.2); PLT 165 X1000 (130-400); RDW 12.8 % (11.5-14.5); WBC 7.78 X1000 (4.8-10.8)
[2018-12-14] MEDS: DUONEB (A & A) INH SCH (07:20)
[2018-12-14 07:28] LABS: ALB/GLOB RATIO 0.9; ALBUMIN 2.9 g/dL (3.5-5.0); CALCIUM 8.5 mg/dL (8.8-10.2); CREATININE 0.9 mg/dL (0.5-0.9); POTASSIUM 3.1 mmol/L (3.5-5.1); TOTAL BILIRUBIN 0.44 mg/dL (0.20-1.00); TOTAL PROTEIN 6.2 g/dL (6.3-8.3)
[2018-12-14 08:01] LABS: T4 6.85 ug/dL (4.60-12.00); TSH 3.11 uIUmL (0.27-4.20)
--- NOTE | 2018-12-14 08:26 | Diag Imaging Result Doc PS360 ---
EXAM: CHEST-2 VIEWS HISTORY: Pneumonia TECHNIQUE: Chest two views COMPARISON: 12/13/2018 FINDINGS: There are infiltrates and atelectasis in the lower left lung in addition to a moderate-sized pleural effusion. The heart remains enlarged. Decreased pulmonary edema. Right lung remains well expanded. No change in the right-sided portacatheter. IMPRESSION: Overall interval improvement. Electronically signed by Ahmet Mark 12/14/2018 8:23 AM
--- NOTE | 2018-12-14 08:33 | EKG Report ---
Test Performed on : 12/13/2018 02:12:44 AM Test Reason : chest pain Blood Pressure : / mmHG Vent. Rate : 083 BPM Atrial Rate : 102 BPM P-R Int : 000 ms QRS Dur : 090 ms QT Int : 380 ms P-R-T Axes : 000 037 166 degrees QTc Int : 446 ms Atrial fibrillation. with a competing junctional pacemaker. Low voltage QRS Cannot rule out Anterior infarct (cited on or before 19-NOV-2016) Abnormal ECG When compared with ECG of 09-FEB-2018 15:08, Vent. rate has increased BY 38 BPM Questionable change in initial forces of Anteroseptal leads QT has lengthened Unconfirmed Result
[2018-12-14] MEDS: COZAAR PO SCH (12:49)
[2018-12-14] MEDS: DEMADEX PO SCH (12:49)
[2018-12-14] MEDS: KLOR-CON PO SCH ×2 (12:50→22:57)
[2018-12-14] MEDS: ARICEPT PO SCH (12:50)
[2018-12-14] MEDS: CARDIZEM CD PO SCH (12:50)
[2018-12-14] MEDS: ZANTAC PO SCH (12:50)
[2018-12-14] MEDS: ROCEPHIN 1 GM in NS 50 ML IV SCH (12:50)
[2018-12-14] MEDS: XARELTO PO SCH (12:51)
[2018-12-14] MEDS ORDERED: NS 500 ML ONE (16:17)
--- NOTE | 2018-12-14 18:31 | ECHO REPORT ---
ORDER DATE: 12/14/2018 INTERPRETING PHYSICIAN: Dr. Johnston REQUESTING PHYSICIAN: CLINICAL INDICATIONS: An 82-year-old female with congestive heart failure, A- fib. M-MODE MEASUREMENTS: Right ventricle: cm. Left ventricle end diastole: 4.2 cm. Left ventricle end systole: 2.5 cm. Posterior wall: 0.6 cm. Interventricular septum: 0.9 cm. Left atrium: 4.3 cm. Aortic root: cm. SUMMARY OF 2-DIMENSIONAL IMAGING: The study is very difficult. The left ventricular function is excellent. Optison was injected to opacify the chamber. The aortic valve shows sclerosis of the cusp. The mitral valve shows calcification of the annulus. Color flow mapping suggests some mitral regurgitation. The study is really difficult and I cannot quantify of the severity of mitral regurgitation in this case. The patient is in atrial fibrillation. Pulse wave Doppler of mitral inflow shows just a single filling wave. Color flow mapping of the aorta suggests mild aortic regurgitation. The tricuspid and pulmonic valves were suboptimally visualized. There is no pericardial effusion, mass or thrombus noted. CONCLUSIONS: Please consider doing a transesophageal echocardiogram to better assess the aortic and mitral valves. cc: MD Pedro Hidalgo MD Russell T. Barr, MD MTDD
[2018-12-14] MEDS: TOPROL XL PO SCH (22:57)
[2018-12-15 07:42] VITALS: BP 119/79
--- NOTE | 2018-12-15 09:56 | DISCHARGE SUMMARY ---
ADMISSION DATE: 12/13/2018 DISCHARGE DATE: 12/15/2018 FINAL DIAGNOSES: 1. Recurrent left pleural effusion, probably due to congestive heart failure. 2. Acute and chronic diastolic left ventricular dysfunction. 3. History of mitral valve repair. 4. History of breast cancer. 5. Acute cystitis, multiple organisms cultured. 6. Chronic atrial fibrillation. 7. Obstructive sleep apnea. HISTORY OF PRESENT ILLNESS: Ms. Hernandez is an 82-year-old woman with a history of multiple medical problems including chronic diastolic congestive heart failure and chronic atrial fibrillation and obstructive sleep apnea, essential hypertension. On the day prior to admission, she underwent an outpatient thoracentesis of the left chest to remove 1.2 L of fluid. This is a chronic and recurrent effusion and is felt to be due to congestive heart failure. During her previous admission last fall, she had cytology performed which was negative for any malignancy. Prior to being sent home on Friday, she was told to return if she had sharp chest pains. Friday morning, she began having some sharp pleuritic type chest pains and returned to the emergency room to rule out a pneumothorax. A chest x-ray showed trace left pleural effusion and possible infiltrates. Her white blood count was 11,000, and she was felt to have possible pneumonia. Admission lab work also documented pyuria and bacteruria. Urine cultures were obtained. HOSPITAL COURSE: She was admitted with possible community acquired pneumonia. However, on further review of chest x-rays, the radiologist felt this was probably some fluid and she received treatment for her urinary tract infection and continued on her heart medicines. She is now asymptomatic and can be discharged. Her echocardiogram here documented normal left ventricular function, sclerosis of the aortic valve, calcification of the mitral annulus, but Dr. Johnston was unable to quantify the severity of her mitral regurgitation. He suggested transesophageal echocardiogram, and I will leave this decision up to her museum educator, Dr. Meier. She is to return to my office in 10 to 14 days for transition of care visit. DISCHARGE MEDICATIONS: Bactrim DS tablets 1 twice a day for 3 additional days, diltiazem CD 180 mg q.a.m. and 120 mg nightly at bedtime, donepezil 5 mg daily, ipratropium nasal spray 0.03% p.r.n. for rhinorrhea, losartan 25 mg daily, metoprolol succinate 50 mg daily, potassium chloride 10 mEq daily, ranitidine 150 mg daily, Xarelto 20 mg daily. cc: Fredis Hamilton MD
[2018-12-15] MEDS: ROCEPHIN 1 GM in NS 50 ML IV SCH (09:58)
[2018-12-15] MEDS: KLOR-CON PO SCH (10:00)
[2018-12-15] MEDS: ARICEPT PO SCH (10:00)
[2018-12-15] MEDS: CARDIZEM CD PO SCH (10:00)
[2018-12-15] MEDS: XARELTO PO SCH (10:00)
[2018-12-15] MEDS: DEMADEX PO SCH (10:01)
[2018-12-15] MEDS: ZANTAC PO SCH (10:01)
[2018-12-15] MEDS: COZAAR PO SCH (10:03)
[2018-12-15] MEDS ORDERED: SEPTRA DS PO SCH (21:00)
== END 2018-12-15 10:30 | disposition home or self-care (01) | DRG 292 ==
LOC: ED 00:37 → 4N 09:21
PROVIDERS: ADMIT Internal Medicine; ATTEND Internal Medicine
CPT/HCPCS: 32421; 32555; 71010; 71020; 71045; 71046; 80048; 80053; 81001; 82550; 83605; 83880; 84436; 84443; 84484; 85025; 85027; 85610; 85730; 87040; 87077; 87088; 87186; 93005; 93306; 94640; 94799; 96365; 97163; 99285; A9270; C8929; J0696; J3370; J7030; J7040; J7050; Q9957

== ENCOUNTER 2019-02-05 06:37 | Observation (INO) ==
[2019-02-05 07:47] LABS: INR 1.03; PROTIME 14.3 Seconds (11.0-16.0); PTT 24.4 Seconds (22.3-41.8)
--- NOTE | 2019-02-05 09:14 | Diag Imaging Result Doc PS360 ---
CHEST-2 VIEWS - 02/05/2019 INDICATION: POST LEFT THORA COMPARISON: 02/02/2019 FINDINGS: There has been successful drainage of the large left pleural effusion. The left lung has not yet fully reexpanded. There is about 30% pneumothorax. IMPRESSION: Incomplete reexpansion of the left lung post thoracentesis. The patient will be monitored, and repeat chest x-rays will be performed in two hours. Electronically signed by Yayo Brower 02/05/2019 9:12 AM
[2019-02-05 09:25] LABS: BODY FLUID SOURCE PLEURAL FLUID
[2019-02-05 10:24] LABS: GLUCOSE BODY FLUID 114 mg/dL; LDH BODY FLUID 138 U/L; TOTAL PROT BODY FLUID 3.8 g/dL
--- NOTE | 2019-02-05 11:05 | Diag Imaging Result Doc PS360 ---
CHEST-2 VIEWS - 02/05/2019 11:03 AM INDICATION: post thoracentesis COMPARISON: 9:04 AM FINDINGS: There is a stable moderate left pneumothorax, about 30%. The right lung remains clear. Stable cardiomegaly. IMPRESSION: Stable moderate left pneumothorax. Electronically signed by Yayo Brower 02/05/2019 11:03 AM
--- NOTE | 2019-02-05 11:20 | Diag Imaging Result Doc PS360 ---
US THORACENTESIS W/IMAGE GUIDE - 02/05/2019 INDICATION: pleural effusion TECHNIQUE: The risks and benefits of the procedure were discussed with the patient. All questions were answered. Written and verbal informed consent was obtained. Overlying skin was prepped and draped in sterile fashion. Anesthesia was achieved with injection of 10 cc of 1% lidocaine. COMPARISON: 12/11/2018 FINDINGS: 1.6 L was successfully drained from the left lung base. The patient remained asymptomatic after the procedure. However, on follow-up chest x-rays, there was poor reexpansion of the left lung, with persistent about 30-40% pneumothorax. The case was discussed with Dr. Cruz. It was decided to admit the patient for monitoring as a precaution. IMPRESSION: Successful left-sided thoracentesis. The left lung did not reexpand. Patient will be admitted. Electronically signed by Yayo Brower 02/05/2019 11:17 AM
[2019-02-05] MEDS ORDERED: SALINE LOCK IV FLUID XX ONE (12:37)
[2019-02-05] MEDS ORDERED: TYLENOL PO PRN (12:37)
[2019-02-05] MEDS ORDERED: NS 500 ML IV ONE (14:32)
--- NOTE | 2019-02-05 14:58 | Diag Imaging Result Doc PS360 ---
EXAM: CHEST-2 VIEWS HISTORY: pneumothorax TECHNIQUE: Inspiratory and expiratory chest, two views COMPARISON: 11:03 AM FINDINGS: There is a moderate-sized left pneumothorax. This has not increased in size compared to the prior study. There has been no other interval change in the chest. IMPRESSION: Stable moderate sized left pneumothorax. Electronically signed by Ahmet Mark 02/05/2019 2:56 PM
--- NOTE | 2019-02-05 16:13 | HISTORY AND PHYSICAL ---
CHIEF COMPLAINT: Pneumothorax following therapeutic and diagnostic thoracentesis. HISTORY OF PRESENT ILLNESS: Mrs. Hernandez is an 83-year-old white female who was scheduled for an elective left thoracentesis today as an outpatient. Radiologist removed 1.6 liters of straw-colored effusion under ultrasound guidance. Postoperatively, she had a 30% to 40% pneumothorax, which was unchanged on chest film two hours later. She continues to be asymptomatic with adequate oxygen saturation of 97% on two liters of nasal cannula. After discussion with Dr. Meier, her manager [employer], we decided to admit her overnight for observation to make sure that the pneumothorax does not progress. She is currently sitting up in bed and has finished lunch and has no complaints, with no chest pain or shortness of breath. She did have significant dyspnea on exertion and some mild shortness of breath prior to this procedure. This is a recurrent pleural effusion that was first tapped one year ago. Cytology at that time showed no evidence of lung cancer or breast cancer. It was a borderline exudate. She again had a therapeutic thoracentesis done 12/11/2018. Her chest x-ray prior to this one showed a moderate left-sided effusion, approximately 50% up the chest wall. PAST MEDICAL HISTORY: Remarkable for chronic atrial fibrillation, chronic diastolic left ventricular dysfunction, recurrent pleural effusion, in April of 2017 she had an abnormal mammogram and underwent lumpectomy of the left breast with an axillary node dissection. She had a port placed for chemotherapy and completed this greater than a year ago. PAST SURGICAL HISTORY: Remarkable for mitral valve repair at [place] greater than ten years ago. SOCIAL HISTORY: She was recently approximately four months ago. Her daughter is her primary caregiver, although they live separately. She visits daily. She also has a son in [place]. She does not use alcohol or tobacco. HOME MEDICATIONS: Diltiazem extended release 120 mg daily, donepezil 10 mg daily for memory, losartan 25 mg daily, metoprolol ER 50 mg at bedtime, potassium chloride 10 mEq twice a day, ranitidine 150 mg daily, Xarelto 20 mg daily, and torsemide 100 mg daily. ALLERGIES: She has no known allergies. REVIEW OF SYSTEMS: GENERAL: Her appetite has been good with no recent weight loss. HEENT: Vision and hearing are adequate without recent changes. RESPIRATORY: Mild dyspnea on exertion but no cough or reactive airway disease or sputum production. CARDIOVASCULAR: She denies significant orthopnea or PND. She has intermittent pedal edema. No recent chest pain, palpitations, or syncope. GI: No nausea, vomiting, diarrhea, or abdominal pain. She has regular bowel movements without constipation. : She has a history of occasional urinary tract infections, but no history of renal stones. NEUROPSYCHIATRIC: Positive history of mild dementia. No history of depression or thought disorders. No history of strokes or seizures. PHYSICAL EXAMINATION: VITAL SIGNS: Temperature 97.5, pulse 75, slightly irregular, respirations 22, blood pressure 124/73, O2 saturation is 97% on 4 L oxygen. GENERAL APPEARANCE: This is an alert, pleasant, talkative, elderly white female, finishing lunch, lying on a stretcher in no acute distress. SKIN: Warm, pink, and dry. HEENT: Pupils equal, round, and reactive to light. Extraocular movements intact. Oropharynx is benign. NECK: Supple with no adenopathy, JVD, or bruits. LUNGS: Clear bilaterally with adequate breath sounds, even on the left side. No crackles or wheezes. CARDIOVASCULAR: There is a nearly regular rhythm approximately 66 per minute, apical rate. No S3 or murmurs are appreciated. ABDOMEN: Obese. Soft. Nontender with active bowel sounds. GENITAL AND RECTAL: Exams are deferred. EXTREMITIES: Mild brawny edema in both ankles. NEUROLOGIC: Mental status is at her baseline, quite conversational. She moves all extremities on command. Gait is not tested. ASSESSMENT: 1. Post thoracentesis pneumothorax, clinically stable and asymptomatic. 2. Recurrent left pleural effusion, rule out occult malignancy. 3. Chronic diastolic congestive heart failure. 4. Mild dementia. 5. History of mitral valve repair. 6. History of breast cancer. 7. Chronic atrial fibrillation. 8. Obstructive sleep apnea. TREATMENT PLAN: Will admit for overnight observation. I have asked Dr. Meier to monitor her for cardiovascular issues and consult with Dr. Beavers. She might, with recurrent effusion, be a candidate for a tunneled pleural catheter for future drainage. cc: Fredis Hamilton MD
[2019-02-05 16:24] LABS: BASO# 0.02 X1000 (0.0-0.2); BASO% 0.2 % (0.0-0.8); EOS# 0.04 X1000 (0.0-0.7); EOS% 0.4 % (0.0-10.0); HEMATOCRIT 51.4 % (37.0-47.0); HEMOGLOBIN 16.5 g/dL (12.0-16.0); IMM GRAN# 0.04 X1000 (0.0-0.04); IMM GRAN% 0.4 % (0.0-0.5); LYMPH# 1.02 X1000 (1.2-3.4); LYMPH% 9.6 % (20.5-51.1); MCH 31.9 PG (27-31); MCHC 32.1 g/dL (33-37); MCV 99.4 FL (81-99); MONO# 0.89 X1000 (0.11-0.59); MONO% 8.3 % (1.7-9.3); MPV 10.9 FL (7.4-10.4); NEUT# 8.67 X1000 (1.4-6.5); NEUT% 81.1 % (42.2-75.2); PLT 155 X1000 (130-400); RBC 5.17 XMIL (4.2-5.4); RDW 13.8 % (11.5-14.5); WBC 10.68 X1000 (4.8-10.8)
[2019-02-05 16:41] LABS: ALB/GLOB RATIO 0.8; ALBUMIN 3.1 g/dL (3.5-5.0); CREATININE 1.1 mg/dL (0.5-0.9); POTASSIUM 3.7 mmol/L (3.5-5.1); TOTAL BILIRUBIN 0.61 mg/dL (0.20-1.00)
[2019-02-05 18:58] LABS: BASO# 0.01 X1000 (0.0-0.2); BASO% 0.1 % (0.0-0.8); EOS# 0.07 X1000 (0.0-0.7); EOS% 0.5 % (0.0-10.0); HEMATOCRIT 46.3 % (37.0-47.0); IMM GRAN# 0.03 X1000 (0.0-0.04); IMM GRAN% 0.2 % (0.0-0.5); LYMPH# 1.33 X1000 (1.2-3.4); LYMPH% 10.3 % (20.5-51.1); MCH 32.1 PG (27-31); MCHC 32.4 g/dL (33-37); MCV 99.1 FL (81-99); MONO# 1.19 X1000 (0.11-0.59); MONO% 9.2 % (1.7-9.3); MPV 10.4 FL (7.4-10.4); NEUT# 10.31 X1000 (1.4-6.5); NEUT% 79.7 % (42.2-75.2); PLT 154 X1000 (130-400); RBC 4.67 XMIL (4.2-5.4); RDW 13.7 % (11.5-14.5); WBC 12.94 X1000 (4.8-10.8)
[2019-02-05 19:05] LABS: URINE SOURCE CLEAN CATCH
[2019-02-05 19:09] LABS: BILIRUBIN URINE NEGATIVE (NEGATIVE); BLOOD URINE NEGATIVE (NEGATIVE); COLOR YELLOW; GLUCOSE URINE NEGATIVE (NEGATIVE); KETONE URINE NEGATIVE (NEGATIVE); LEUKOCYTES URINE LARGE (NEGATIVE); NITRITE URINE NEGATIVE (NEGATIVE); PROTEIN URINE NEGATIVE (NEGATIVE); SP GRAVITY URINE 1.011; TURBIDITY URINE CLEAR (CLEAR); UROBILINOGEN URINE NORMAL (NORMAL)
[2019-02-05 19:10] LABS: UR EPITHELIAL CELLS <10 /HPF (<10); URINE BACTERIA 4+ /HPF; URINE RBC <10 /HPF (<10); URINE WBC 20-40 /HPF (<10)
--- NOTE | 2019-02-05 20:44 | CONSULTATION ---
DATE OF CONSULTATION: 02/05/2019 IMPRESSION: 1. Left-sided pneumothorax of 30 to 40 percent following left side thoracentesis today. 2. Recurrent left pleural effusion of large size of unclear etiology. Patient initially had left pleural effusion a year ago and at that time was diagnosed with left breast cancer. Patient has had recurrent left pleural effusion couple months ago and now very recently. Cytology on previous specimen negative. 3. Mitral valve disorder with history of previous mitral ring annuloplasty for management of mitral regurgitation in January 2007. 4. Chronic atrial fibrillation. 5. Stage IV breast cancer diagnosed last year. The patient has history of previous breast cancer in December 2016 involving the left breast with a large left breast mass extending to the skin surface with metastatic left axillary adenopathy. The patient underwent radiation therapy and chemotherapy thereafter. 6. Hypertension. RECOMMENDATIONS: 1. Observe in hospital for next 24 hours on telemetry. 2. Supplemental oxygen. 3. Pulmonary medicine consultation. HISTORY: This 83-year-old white female with past history of breast cancer, mitral valve ring repair for mitral regurgitation, chronic atrial fibrillation, chronic congestive heart failure with preserved left ventricular ejection fraction, and hypertension came into [facility] today as an outpatient for left side thoracentesis. She has had progressive dyspnea the last several weeks and recently had evaluation which disclosed large left pleural effusion. She has had left pleural effusion in the past, a year ago and again a few months ago. She underwent thoracentesis on the left this morning after holding her anticoagulation for 2 days. She developed some atypical chest pain and followup chest x-ray showed 30 to 40 percent left pneumothorax. She denies shortness of breath. There has been no angina. Her atypical chest pain has resolved. PAST MEDICAL HISTORY: 1. Breast cancer. 2. Status post mitral valve ring repair approximately 13 years ago for mitral regurgitation. 3. Chronic atrial fibrillation. 4. Hypertension. 5. Previous DVT in the past. 6. Recurrent left pleural effusion. 7. Obstructive sleep apnea. 8. Carotid atherosclerosis. PAST SURGICAL HISTORY: 1. Includes mitral valve ring repair/annuloplasty in January 2007 for mitral regurgitation, left thoracentesis last year and again in November of this year, left mastectomy with left axillary lymph node dissection December 2016. ALLERGIES: She is allergic or intolerant to red dye and celecoxib. MEDICATIONS PRIOR TO ADMISSION: As listed. SOCIAL HISTORY: She is a nonsmoker and does not use alcohol. FAMILY HISTORY: Negative for premature coronary disease. REVIEW OF SYSTEMS: Pulmonary: Noteworthy for increasing dyspnea of late. There has been some cough productive of what is described as foamy clear sputum. Gastrointestinal: Noncontributory. Constitutional: Negative/noncontributory. Remainder review of systems negative/noncontributory with 14 total systems reviewed. PHYSICAL EXAMINATION: General: This is an obese, elderly white female in no distress on room air. Vital signs: Blood pressure 97/62, heart rate 68, oxygen saturation 95%. HEENT: Extraocular movements appear intact. Mucous membranes moist. Neck: Supple. No jugular venous distention. There are no carotid bruits. Chest: Auscultation of the chest reveals a few inspiratory crackles in the bases particularly left base. Cardiac Exam: Reveals a irregular rate and rhythm without appreciable murmur or gallop. Abdomen: Soft. Bowel sounds are normal. Extremities: Demonstrate trace edema with prominent chronic venous stasis changes as well as some venous varicosities. EKG is pending. LABORATORY DATA: Includes a pro time 14.3, INR 1.03, PTT 24.4. Additional laboratory studies pending. cc: MD Fredis Bruner MD
[2019-02-05] MEDS: PERIDEX MT SCH (20:59)
[2019-02-05] MEDS: KLOR-CON PO SCH (20:59)
[2019-02-05] MEDS ORDERED: TOPROL XL PO SCH (21:00)
--- NOTE | 2019-02-06 03:09 | PULMONOLOGY CONSULTATION ---
DATE: 02/05/2019 REQUESTING PHYSICIAN: Dr. Pedro Meier. REASON FOR CONSULTATION: Recurrent left-sided pleural effusion with thoracentesis and pneumothorax. HISTORY OF PRESENT ILLNESS: Ms. Hernandez is an 83-year-old, white female who underwent surgical resection of the left breast for breast cancer, 05/03/2017. The patient had an ER positive, DC negative, HER-2/alisha negative breast cancer with metastatic disease to 09/04 lymph nodes. The patient reports she did not tolerate the complete course of chemotherapy, she did not tolerate radiation therapy, and that she did not tolerate a pill for prevention of recurrence of her disease (tamoxifen?) The patient was evaluated by this practitioner for a small to moderate left- sided effusion 1 year ago. Thoracentesis was borderline transudative, at that time, and cytology was negative. She has had evidence of progressive increase in asymmetric effusion. The patient has been followed by Dr. Meier, and patient underwent an ultrasound-guided thoracentesis today, 1.6 L of fluid was removed from the left hemithorax. She reports her dyspnea has significantly diminished. Postprocedure chest x-ray reveals a moderate left-sided pneumothorax. PAST MEDICAL HISTORY: 1. History of lymph node positive breast cancer, as per above. 2. Obstructive sleep apnea. 3. History of heart failure. 4. Status post mitral valve repair. 5. Chronic atrial fibrillation. 6. Mild cognitive impairment. 7. Prior history of deep vein thrombosis with pulmonary emboli. 8. Gastroesophageal reflux. 9. Hypertension. SOCIAL HISTORY: She is a never smoker. No alcohol use. REVIEW OF SYSTEMS: Notable for increasing shortness of breath and fluctuating lower extremity edema. PHYSICAL EXAMINATION: General: Reveals an obese white female in no distress. She has lost approximately 15 pounds over the last year. Vital signs: Blood pressure 108/66, heart rate 68, respiratory rate 22, oxygen saturation 94% on 2 L per nasal cannula. HEENT: Pupils are equal and reactive. Oropharynx is clear. Neck: Supple. Chest: Diminished breath sounds left base with coarse breath sounds in the lung on the left. Right side is clear. Cardiac: S1, S2. Abdomen: Soft. Extremities: Reveal evidence of recent contraction with increased wrinkling. LABORATORIES: From the pleural fluid, glucose 114, total protein 3.8, LDH 138. White blood count 12.94, hemoglobin 15.0, platelet count 154,000. Sodium 142, potassium 3.7, chloride 96, bicarbonate 31, BUN 21, creatinine 1.1, total protein 7.0, albumin 3.1, globulin fraction 3.9, LDH 295. IMPRESSION: An 83-year-old with history of node positive breast cancer, who presents with progressive increase in size of a left-sided pleural effusion. Pleural fluid is exudative in character. The marked asymmetry of the pleural fluid presentation is of concern for recurrence of disease in the setting of an exudative pleural effusion. However, sometimes chronic pleural effusions can also be exudative in character. She clearly is at risk for recurrence of her breast cancer disease. RECOMMENDATIONS: 1. Await cytology report. 2. Continue to observe pneumothorax. It has been stable on several chest x-rays. 3. Pursue CT scan of the thorax now that the pleural fluid has been removed. 4. Additional recommendations pending hospital course. cc: MD Fredis Chavez MD
--- NOTE | 2019-02-06 07:21 | Diag Imaging Result Doc PS360 ---
EXAM: CHEST-PORTABLE HISTORY: abnormal exam TECHNIQUE: Chest single view COMPARISON: 02/05/2019 FINDINGS: No interval change in the moderate-sized left-sided pneumothorax. Cardiomegaly is present. No change in the right-sided portacatheter. Infiltrates and atelectasis in the lower left lung are unchanged. IMPRESSION: Stable chest Electronically signed by Ahmet Mark 02/06/2019 7:18 AM
[2019-02-06] MEDS: PERIDEX MT SCH (08:47)
[2019-02-06] MEDS: KLOR-CON PO SCH (08:48)
[2019-02-06] MEDS ORDERED: COZAAR PO SCH (09:00)
[2019-02-06] MEDS ORDERED: XARELTO PO SCH (09:00)
[2019-02-06] MEDS ORDERED: ZANTAC PO SCH (09:00)
[2019-02-06] MEDS ORDERED: DEMADEX PO SCH (09:00)
[2019-02-06] MEDS ORDERED: CARDIZEM CD PO SCH (09:00)
[2019-02-06] MEDS ORDERED: ARICEPT PO SCH (09:00)
[2019-02-06 11:38] VITALS: BP 105/69
--- NOTE | 2019-02-06 12:18 | Diag Imaging Result Doc PS360 ---
EXAM: CT THORAX W/O CONTRAST HISTORY: progressive effusion TECHNIQUE: CT chest without contrast COMPARISON: 02/10/2018 FINDINGS: There is a moderate sized left-sided hydropneumothorax. There are infiltrates and atelectasis in the left upper and lower lobes. Minimal atelectasis or scarring in the right lower lobe. The heart is enlarged and there is central vascular distention. Tiny pericardial effusion with trace right pleural effusion. Prominent atherosclerosis. No aortic aneurysm. There is a right subclavian portacatheter. No right-sided pneumothorax. No enlarged lymph nodes. Right lower lobe granuloma. No definite mass identified. IMPRESSION: Moderate sized left-sided hydropneumothorax with atelectasis and/or infiltrates in the left lung This exam was performed using automated exposure control, adjustment of mA or kV according to patient size, and/or use of iterative reconstruction technique. Electronically signed by Ahmet Mark 02/06/2019 12:16 PM
--- NOTE | 2019-02-06 17:57 | PULMONOLOGY PROGRESS NOTE ---
DATE: 02/06/2019 SUBJECTIVE: The patient is awake, alert, and conversant. She denies shortness of breath at rest. OBJECTIVE: Vital Signs: The patient has been afebrile for the last 24 hours. Blood pressure 120/74, heart rate 65, respiratory rate 20, oxygen saturation 98% on 2 L per nasal cannula. HEENT: Pupils are equal and reactive. Oropharynx appears clear. Neck: Supple. Chest: Reveals diminished breath sounds left base. Cardiac exam: S1, S2. Abdomen: Soft and without hepatosplenomegaly. Extremities: Without edema. X-RAYS: Chest x-ray reveals moderate left-sided pneumothorax, cardiomegaly, no improvement. IMPRESSION: An 83-year-old with: 1. Exudative pleural effusion. 2. Iatrogenic pneumothorax following thoracentesis. 3. History of breast cancer status post resection in April 2017 with positive lymph nodes at the time of resection. PLAN: 1. Await cytology report. 2. Await CT scan of the thorax, which has been ordered following thoracentesis. 3. Consider outpatient PET scan if CT scan and pleural effusion are unremarkable. cc: MD Fredis Chavez MD
[2019-02-06 20:56] LABS: BODY FLUID SOURCE PLEURAL FLUID; SPECIMEN PLEURAL FLUID
[2019-02-06 21:02] LABS: WBC BF 288 /cumm
[2019-02-06 21:09] LABS: MONOS 92 %; POLYS 8 %
[2019-02-06 21:25] LABS: AMYLASE BODY FLUID 42 U/L; GLUCOSE BODY FLUID 110 mg/dL; LDH BODY FLUID 104 U/L; TOTAL PROT BODY FLUID 3.7 g/dL
== END 2019-02-06 12:58 | disposition home or self-care (01) ==
LOC: OPS 06:37 → 4N 06:37
PROVIDERS: ADMIT Internal Medicine; ATTEND Internal Medicine Cardiovascular Disease
CPT/HCPCS: 32421; 32555; 71010; 71020; 71045; 71046; 71250; 80053; 81001; 82150; 82945; 83615; 83986; 84157; 85025; 85610; 85730; 87015; 87070; 87077; 87088; 87102; 87116; 87147; 87186; 87205; 87206; 89050; 89051; 94761; 94799; A9270; G0378; G0379; J7040

== ENCOUNTER 2019-02-15 19:21 | Observation (INO) ==
--- NOTE | 2019-02-15 20:24 | Diag Imaging Result Doc PS360 ---
EXAM: CHEST-2 VIEWS INDICATION: short of breath TECHNIQUE: 2 views COMPARISON: 02/15/2019 FINDINGS: The right chest port is stable. The left-sided chest tube is in stable position. The small left apical pneumothorax is approximately stable. There is increased opacity at the left lung base as compared to previous study likely representing a small amount of pleural fluid with adjacent atelectasis and/or infiltrate. Mild interstitial edema is approximately stable. No new consolidation is identified, otherwise. Cardiac silhouette is stable. IMPRESSION: Increasing opacity at the left lung base as compared to the previous study. Stable chest, otherwise. Electronically signed by Supa Goodman 02/15/2019 8:22 PM
--- NOTE | 2019-02-15 21:09 | GENERAL SURGERY CONSULTATION ---
DATE: 02/15/2019 HISTORY OF PRESENT ILLNESS: This is a 83-year-old female, patient of Dr. Duran, who has a left- sided effusion. She underwent a VATS and PleurX catheter drainage. She has a history of breast cancer. She did okay from this, went home, was feeling fine, but developed drainage and saturation of her wound. She came back. Hemodynamically, she has been stable. Chest x-ray shows findings consistent with postoperative period and serosanguineous drainage noted from her dressing. PHYSICAL EXAMINATION: Vital Signs: Heart rate is normal in the 70s to 80s. Oxygen saturations are mid 90s on room air. General: She is alert, in no acute distress. Left PleurX catheter is in place. There are dressings on her trocar sites. There is some serosanguineous drainage noted on the wound. She has no increased work of breathing. Heart: Normal rate, regular rhythm. Abdomen: Soft. Integument: Warm, dry. No labs. I reviewed her chest x-ray that shows possibly some increasing opacity in the lower lobe, trace apical pneumothorax, but no significant pneumothorax. No mediastinal shift. ASSESSMENT AD PLAN: An 83-year-old female with left PleurX catheter placement, patient of Dr. Duran from earlier today. Will admit her for observation overnight. I have asked the hospitalist or one of Dr. Hamilton's partners to see her tonight and admit her for assistance with her medical management. I was going to place Pleur-evac drainage, but we were unable to obtain a drainage catheter device. As such, we will observe her, pulmonary toileting, pain control, with plans for repeat chest x-ray in the morning. We can drain it tomorrow if a significant amount of fluid has reaccumulated. I talked to the daughter and patient. They agree. We will see how she does going forward, but otherwise she is hemodynamically doing very well. cc: Roscoe Bee MD
[2019-02-15 21:10] LABS: BASO# 0.01 X1000 (0.0-0.2); BASO% 0.1 % (0.0-0.8); EOS# 0.01 X1000 (0.0-0.7); EOS% 0.1 % (0.0-10.0); HEMATOCRIT 50.5 % (37.0-47.0); HEMOGLOBIN 16.4 g/dL (12.0-16.0); IMM GRAN# 0.05 X1000 (0.0-0.04); IMM GRAN% 0.4 % (0.0-0.5); LYMPH# 0.66 X1000 (1.2-3.4); LYMPH% 5.8 % (20.5-51.1); MCH 31.8 PG (27-31); MCHC 32.5 g/dL (33-37); MCV 98.1 FL (81-99); MONO# 0.98 X1000 (0.11-0.59); MONO% 8.7 % (1.7-9.3); MPV 9.9 FL (7.4-10.4); NEUT# 9.58 X1000 (1.4-6.5); NEUT% 84.9 % (42.2-75.2); PLT 215 X1000 (130-400); RBC 5.15 XMIL (4.2-5.4); RDW 13.6 % (11.5-14.5); WBC 11.29 X1000 (4.8-10.8)
[2019-02-15 21:27] LABS: ALB/GLOB RATIO 0.8; ALBUMIN 2.9 g/dL (3.5-5.0); CALCIUM 8.5 mg/dL (8.8-10.2); CREATININE 1.2 mg/dL (0.5-0.9); POTASSIUM 4.6 mmol/L (3.5-5.1); TOTAL BILIRUBIN 0.35 mg/dL (0.20-1.00); TOTAL PROTEIN 6.4 g/dL (6.3-8.3)
--- NOTE | 2019-02-15 21:31 | PROVIDER DOCUMENTATION ---
This chart was entered by Heidi Cota Scribe, acting as scribe for Maddi Giordano MD. HPI-Rash/Wound/ReCheck - General Chief Complaint: Post Op Complaint Stated Complaint: POST OP COMPLICATIONS Time Seen by Provider: 02/15/19 19:45 Source: patient, family Allergies/Adverse Reactions: Allergies Allergy/AdvReac Type Severity Reaction Status Date / Time red dye Allergy Severe "messed my Verified 02/15/19 20:12 kidneys up" celecoxib [From Celebrex] Allergy Mild RASH Verified 02/15/19 20:12 Home Medications: Home Medication List Medication Instructions Recorded Confirmed Last Taken Type Ranitidine [Zantac] 150 mg PO DAILY 04/17/17 02/15/19 02/15/19 History Donepezil HCl 10 mg PO DAILY 02/07/18 02/15/19 02/15/19 History Metoprolol Succinate E.r. [Toprol 50 mg PO QHS #39 tab 02/12/18 02/15/19 02/14/19 20:00 Rx Xl] Losartan Potassium 25 mg PO DAILY 12/11/18 02/15/19 02/15/19 History Torsemide 100 mg PO DAILY 12/11/18 02/15/19 02/15/19 History Diltiazem HCl [Diltiazem 24Hr ER] 120 mg PO DAILY 12/13/18 02/15/19 02/15/19 History Rivaroxaban [Xarelto] 20 mg PO DAILY 12/13/18 02/15/19 02/13/19 History Ipratropium 0.03% Nasal [place] 2 spray INTRANASAL DAILY PRN PRN 12/15/18 02/15/19 Unknown Rx [Atrovent 0.03% Nasal [place]] #1 bottle Acetaminophen [Tylenol] 650 mg PO Q6H PRN PRN tab 02/06/19 02/15/19 Unknown Rx Potassium Chloride E.r. [Klor-Con] 20 meq PO DAILY 02/12/19 02/15/19 02/15/19 History Sulfamethoxazole/Trimethoprim 1 tab PO BID 02/12/19 02/15/19 02/14/19 08:00 History [Sulfamethoxazole-Tmp Ds Tablet] Hydrocodone/APAP 7.5 mg/325 mg 1 ea PO Q6H PRN PRN #15 tab 02/15/19 02/15/19 Unknown Rx [[place]-7.5] - History of Present Illness-Dermatology Nature of Presenting Problem: pt is a 83 yr old female presenting with complaint of bleeding from surgical site. daughter reports pt had catheter placed in left lung today to drain fluid, placement completed by Dr Paz, pt discharged home approx 1500. this evening daughter noticed pt had bled through dressing onto clothing from around catheter. pt denies any other complaints. Location: reports: chest (left) Quality: reports: none Severity: reports: mild Onset/Duration: reports: this evening Timing: reports: still present Context/Associated Symptoms: reports: incised wound (catheter placed/draining around catheter) Identifiable cause?: Yes Locality of Occurance: Home Similar Symptoms Previously?: No Recently seen or treated by another doctor?: Yes Review of Systems - Adult - REVIEW OF SYSTEMS - ADULT Constitutional: denies: chills, fever Eyes: reports: no symptoms reported Ears, Nose, Mouth & Throat: reports: no symptoms reported Cardiovascular: reports: no symptoms reported Respiratory: denies: hemoptysis, shortness of breath Gastrointestinal: reports: no symptoms reported Genitourinary: reports: no symptoms reported Musculoskeletal: reports: no symptoms reported Integumentary: reports: no symptoms reported Neurological: reports: no symptoms reported Psychiatric: reports: no symptoms reported Endocrine: reports: no symptoms reported Hematologic/Lymphatic: reports: no symptoms reported Allergic/Immunologic: reports: no symptoms reported All Other Systems: Reviewed and Negative Past History - Adult - PAST MEDICAL HISTORY-ADULT Review of Records: reports: Old Records Reviewed, Nursing Assessment Review, Medications Reviewed, Social history reviewed & non-contributory. Major Childhood Illnesses: reports: denies history Cardiovascular: reports: A-Fib, CHF, HTN, heart valve problem (mitral valve--repaired). denies: CAD Respiratory: reports: denies history Gastrointestinal: reports: denies history Obstetrical/Gynecological: reports: denies history Genitourinary: reports: denies history Musculoskeletal: reports: denies history Neurological: reports: denies history Psychiatric: reports: denies history Endocrine/Immune: reports: denies history Other Conditions: reports: denies history - PRIOR SURGERIES/PROCEDURES Surgical/Procedure History: reports: reviewed, not pertinent, other (cardiac ablation 2013, Mitral valve repair) - IMMUNIZATION STATUS Childhood Immunizations: See Nurse Assessment Flu Vaccine: See Nurse Assessment - FAMILY HISTORY Family History: reviewed, not pertinent - SOCIAL HISTORY Living Situation: family Physical Exam-General - CONSTITUTIONAL General Appearance: appears well, alert, no apparent distress - HEAD, EARS, NOSE, MOUTH & THROAT HENMT: normocephalic/atraumatic - NECK Neck: supple, normal inspection - RESPIRATORY Respiratory: chest non-tender, crackles (bases bilaterally), other (pleurex catheter in place with dressing that is saturated with serosanguinous fluid.) - GASTROINTESTINAL (ABDOMEN) Abdominal Exam: normal bowel sounds, non tender, soft - MUSCULOSKELETAL Extremity: pedal edema (2+ pedel edema bilaterally) - SKIN Integumentary: normal color, warm/dry - PSYCHIATRIC Psych/Mental Status: normal mood/affect, oriented x 3 Progress - PLAN OF CARE/RESULTS Progress/Plan/Lab Results: Vital Signs - 8 hr 02/15/19 19:27 Temperature 97.3 F L Pulse Rate 95 H Respiratory Rate 18 Blood Pressure 96/67 O2 Sat by Pulse Oximetry 97 Laboratory Results - last 24 hr 02/15/19 21:00 WBC 11.29 H RBC 5.15 Hgb 16.4 H Hct 50.5 H MCV 98.1 MCH 31.8 H MCHC 32.5 L RDW Std Deviation 13.6 Plt Count 215 MPV 9.9 Immature Gran % (Auto) 0.4 Neut % (Auto) 84.9 H Lymph % (Auto) 5.8 L Hanson % (Auto) 8.7 Eos % (Auto) 0.1 Baso % (Auto) 0.1 Immature Gran # (Auto) 0.05 H Neut # (Auto) 9.58 H Lymph # (Auto) 0.66 L Hanson # (Auto) 0.98 H Eos # (Auto) 0.01 Baso # (Auto) 0.01 Orders Category Date Time Status CHEST-2 VIEWS [RAD] Stat Exams 02/15/19 19:59 Completed CBC WITH ELECTRONIC DIFF [HEME] Stat Lab 02/15/19 21:00 Completed CMP [COMPREHENSIVE METABOLIC PANEL] [CHEM] Stat Lab 02/15/19 21:00 Received Result Diagrams: 02/15/19 21:00 - XRAY 1 XRAY Study: Chest Impression: Abnormal (Signed EXAM: CHEST-2 VIEWS INDICATION: short of breath TECHNIQUE: 2 views COMPARISON: 02/15/2019 FINDINGS: The right chest port is stable. The left-sided chest tube is in stable position. The small left apical pneumothorax is approximately stable. There is increased opacity at the left lung base as compared to previous study likely representing a small amount of pleural fluid with adjacent atelectasis and/or infiltrate. Mild interstitial edema is approximately stable. No new consolidation is identified, otherwise. Cardiac silhouette is stable. IMPRESSION: Increasing opacity at the left lung base as compared to the previous study. Stable chest, otherwise. Electronically signed by Supa Goodman 02/15/2019 8:22 PM 02/15/192021 Interpreting Physician: Supa Goodman MD Dictated Date/Time: 02/15/192018 cc: Maddi Giordano MD; Fredis Hamilton MD) Comparison with other Films: no changes (02/15/19) - CONSULTS/PCP/HOSPITALIST Notification #1 *Consult/PCP/Hospitalist*: Dr Bee Time Discussed: 20:00 Reason/Comments: Admit to hospitalist, he will come and evaluate patient, order CXR Consult Disposition: Will see in ED #2 Consult: Dr Eaton Time Discussed: 20:45 Consult Disposition: Admit Departure - Departure Date of Disposition Decision: 02/15/19 Time of Disposition Decision: 20:41 DIAGNOSIS: Pleural effusion due to CHF (congestive heart failure) Disposition: ADMITTED INPATIENT 09 Certified Medical Emergency: Emergent Condition: Stable Referrals and Follow-Ups: Fredis Hamilton MD [Primary Care Provider] - - Critical Care Note This patient required my direct & personal management of CC.: No Attestation - Physician/ RADHA Attestation Patient care was provided by Advanced Practice Provider:: No The physician spent face to face time with patient:: Yes Advanced Practice Provider documentation review:: Supervising physician onsite and consulted in the evaluation and care of this patient. The physician did have a face to face encounter with the patient. This chart was documented by the indicated scribe, (Heidi Cota Scribe) and accurately reflects the services I performed and decisions made by me, Maddi Giordano MD, as attested by the provider's signature.
[2019-02-15 22:29] LABS: URINE SOURCE CLEAN CATCH
[2019-02-15 22:55] LABS: BILIRUBIN URINE NEGATIVE (NEGATIVE); BLOOD URINE NEGATIVE (NEGATIVE); COLOR YELLOW; GLUCOSE URINE NEGATIVE (NEGATIVE); KETONE URINE NEGATIVE (NEGATIVE); LEUKOCYTES URINE NEGATIVE (NEGATIVE); NITRITE URINE NEGATIVE (NEGATIVE); PROTEIN URINE NEGATIVE (NEGATIVE); SP GRAVITY URINE 1.011; TURBIDITY URINE CLEAR (CLEAR); UROBILINOGEN URINE NORMAL (NORMAL)
[2019-02-15 22:58] LABS: UR EPITHELIAL CELLS <10 /HPF (<10); URINE BACTERIA NEGATIVE /HPF; URINE RBC <10 /HPF (<10); URINE WBC <10 /HPF (<10)
[2019-02-16] MEDS ORDERED: TYLENOL PO PRN (00:24)
[2019-02-16] MEDS ORDERED: NORCO-7.5 PO PRN (00:24)
[2019-02-16] MEDS ORDERED: ZOFRAN IV PRN (00:24)
[2019-02-16] MEDS ORDERED: DUONEB (A & A) INH PRN (00:24)
[2019-02-16] MEDS: MYCOSTATIN POWDER TOP SCH ×2 (01:54→09:02)
[2019-02-16 04:00] LABS: URINE SOURCE CLEAN CATCH
[2019-02-16 04:41] LABS: COLOR YELLOW
[2019-02-16 04:42] LABS: BILIRUBIN URINE NEGATIVE (NEGATIVE); BLOOD URINE NEGATIVE (NEGATIVE); GLUCOSE URINE NEGATIVE (NEGATIVE); KETONE URINE NEGATIVE (NEGATIVE); LEUKOCYTES URINE NEGATIVE (NEGATIVE); NITRITE URINE NEGATIVE (NEGATIVE); PROTEIN URINE NEGATIVE (NEGATIVE); TURBIDITY URINE CLEAR (CLEAR); UROBILINOGEN URINE NORMAL (NORMAL)
[2019-02-16 04:43] LABS: UR EPITHELIAL CELLS <10 /HPF (<10); URINE BACTERIA NEGATIVE /HPF; URINE RBC <10 /HPF (<10); URINE WBC <10 /HPF (<10)
[2019-02-16 05:46] LABS: BASO# 0.01 X1000 (0.0-0.2); BASO% 0.1 % (0.0-0.8); EOS# 0.02 X1000 (0.0-0.7); EOS% 0.2 % (0.0-10.0); HEMATOCRIT 48.4 % (37.0-47.0); HEMOGLOBIN 15.9 g/dL (12.0-16.0); IMM GRAN# 0.03 X1000 (0.0-0.04); IMM GRAN% 0.3 % (0.0-0.5); LYMPH# 0.85 X1000 (1.2-3.4); LYMPH% 8.9 % (20.5-51.1); MCH 32.1 PG (27-31); MCHC 32.9 g/dL (33-37); MCV 97.8 FL (81-99); MONO# 0.84 X1000 (0.11-0.59); MONO% 8.8 % (1.7-9.3); NEUT% 81.7 % (42.2-75.2); PLT 193 X1000 (130-400); RBC 4.95 XMIL (4.2-5.4); RDW 13.7 % (11.5-14.5); WBC 9.55 X1000 (4.8-10.8)
[2019-02-16 06:00] LABS: CALCIUM 8.4 mg/dL (8.8-10.2); CREATININE 1.3 mg/dL (0.5-0.9); POTASSIUM 4.2 mmol/L (3.5-5.1)
--- NOTE | 2019-02-16 07:19 | Diag Imaging Result Doc PS360 ---
EXAM: CHEST-PORTABLE 02/16/2019 HISTORY: Re-evaluation of recently placed PleurX chest tube TECHNIQUE: AP portable at 0556 COMMENT: There is cardiomegaly. There is pleural and parenchymal opacity on the left. There is a left pleural catheter. The left lower lobe is slightly clearer than it was. Otherwise are has been no appreciable change since 02/15/2019. IMPRESSION: Improved left lower lobe and lingular atelectasis. Electronically signed by Rashawn Allen 02/16/2019 7:17 AM
--- NOTE | 2019-02-16 08:03 | HISTORY AND PHYSICAL ---
PRIMARY CARE PROVIDER: Dr. Fredis Hamilton. CHIEF COMPLAINT: Postoperative complication of chest tube leakage. HISTORY OF PRESENT ILLNESS: Ms. Hernandez is an 83-year-old, female who has a history of having recurrent left pleural effusions. She has had thoracentesis a few times previously though due to recurrent effusion she did have a Pleur-X chest tube catheter placed today 02/15/[address] Paz. This was performed outpatient. The patient was discharged home. The patient as well as her daughter states that she was discharged home at approximately 15:00. Though after arriving home this evening, they noticed that the patient had bled through the dressing onto the clothing around the catheter, and did present back to the ER for further evaluation. Dr. Salazar did contact Dr. Bee, who is education reporter for the surgical team. He did come in and assess the patient as well. He did note that the patient's chest x-ray did show findings consistent with postoperative period and serosanguineous drainage noted n from her dressing. He did note that we did attempt to place the Pleur-Evac drainage but they were unable to obtain a drainage catheter device. He did recommend to observe her overnight, and perform pulmonary toileting,pain control, and repeat chest x-ray in the morning. The patient states at this time that she is not really complaining of pain though she is just very sore on her left side. Though she denies any shortness of breath. She is not in any respiratory distress at this time. Oxygen saturations as well as vital signs are within normal limits. She does appear to be hemodynamically stable. We did perform a CBC. Her hemoglobin and hematocrit are stable, and actually improved and are stable. She denies any pain anywhere else at this time. The patient does report that she did get diagnosed with Stage IV breast cancer from what I understand was in December of 2016. She did have [*]in December of 2016. This was involving the left breast with a large left breast mass extending into the skin surface with metastatic left axillary adenopathy. She did undergo radiation and chemotherapy. The patient did have problems with recurrent pleural effusion at that time though recently she has had recurrence of her left pleural effusion. There was concern that this may be related to malignancy. The patient and the patient's daughter stated at this time that they have not been informed that this is related to malignancy. They did obtain biopsies today during her procedure by Dr. Paz though these are pending results at this time. The patient does state recently that she was diagnosed with a urinary tract infection though is not having symptoms any more at this time. She states that she does have 2 tablets left of her Bactrim antibiotic regimen. She also reports that she has some skin irritation in her left abdominal fold. She states that she was instructed by her oncology nurse to put Gold Rosenberg on this. Though upon evaluation, this did appear to look like it was erythematous, and did have yeast present. Other than this, she had no other complaints. She will be placed for admission overnight for observation services. REVIEW OF SYSTEMS: A 14 point review of systems was conducted with the patient. All were negative except for pertinent positives mentioned above in HPI. PAST MEDICAL HISTORY: 1. History of stage IV breast cancer in 2017 status post radiation therapy and chemotherapy followed by Dr. Osorio. 2. History of recurrent left pleural effusions with previous thoracentesis that needed to be performed. 3. Mitral valve disorder with a history of previous mitral ring annuloplasty for management of mitral regurgitation in 2006. 4. Chronic atrial fibrillation. 5. Hypertension. 6. Obstructive sleep apnea. 7. Carotid atherosclerosis. 8. Previous DVT's in the past for which she states she had one on her right leg and 2 in her left leg. She was previously on Coumadin though now just takes Xarelto. 9. Cataracts. 10. Macular degeneration. PAST SURGICAL HISTORY: 1. History of mitral ring annuloplasty for management of her mitral regurgitation in 2017, 2. History of left breast biopsy. 3. History of left partial mastectomy. 4. History of left axillary dissection. 5. Cataract surgery. SOCIAL HISTORY: The patient has no known past or present history of tobacco, alcohol or illicit drug use. Her daughter was present at bedside during our examination. She does help care for her. FAMILY HISTORY: Positive for her mother having a history of hypertension. Her father had a history of stroke. ALLERGIES: 1. Patient has allergies to Claritin which causes her to have itching. She also has an allergy to red dye. 2. Celebrex which causes a rash. HOME MEDICATIONS: 1. Diltiazem 24 hour extended release 120 mg p.o. daily. 2. Donepezil 10 mg p.o. daily. 3. [place] 7.5 1 p.o. q.6 hours p.r.n. for pain. 4. Atrovent 0.03 nasal spray 2 sprays intranasally daily p.r.n. 5. Losartan 25 mg p.o. daily. 6. Toprol-XL 50 mg p.o. at bedtime. 7. Potassium chloride extended release 20 mEq p.o. daily. 8. Zantac 150 mg p.o. daily. 9. Xarelto 20 mg p.o. daily. 10. Bactrim DS tablet 1 tablet p.o. b.i.d. 11. Torsemide 100 mg p.o. daily. DIAGNOSTIC DATA: White blood cell count 11,290, hemoglobin 16.4, hematocrit 50.5, platelet count 215,000, sodium 134, potassium 4.6, chloride 92, serum bicarb of 29, BUN 21, creatinine 1.2 with GFR of 43, glucose 128, calcium 8.5. Liver function tests within normal limits. Urinalysis obtained via clean catch was negative for protein, glucose, ketones, blood, nitrates, leukocytes, white blood cells or bacteria. A chest x-ray did show that there is a left-sided chest tube in stable position. There is a small left apical pneumothorax that was reported to be stable. There was an increasing opacity at the left lung base as compared to the previous study likely representing a small amount of pleural fluid with adjacent atelectasis and/or infiltrate. There is mild interstitial edema which was noted to be stable. Other than this, there was no new consolidation identified. This was per Radiology. PHYSICAL EXAMINATION: VITAL SIGNS: Temperature 97.8 degrees, heart rate 83, respirations 20, blood pressure 105/60. Oxygen saturation 96% on room air. GENERAL: Ms. Hernandez is a pleasant 83-year-old, female. She was resting on the ER stretcher. She was in no acute distress. She was awake and alert, and answered questions appropriately. HEENT: Head is atraumatic, normocephalic. Pupils are equal, round, reactive to light, and were 3 mm bilaterally and brisk. Oral mucosa was moist. Oropharynx was clear. NECK: Supple. Trachea midline. CARDIOVASCULAR: Patient has S1-S2 present. No murmurs, gallops, or rubs appreciated with regular rate and rhythm in the 80's. The patient on the bedside cardiac murmur did appear to be in atrial fibrillation. PULMONARY: Patient has symmetrical chest expansion bilaterally. Lung sounds in the right lung gautam were clear to auscultation though the patient did have clear lung sounds in the left upper lung gautam though in the left lower lung gautam she did have crackles, and also some crepitus noted. She did have crepitus noted on palpation of the left chest wall as well. She does have a chest tube PleurX catheter noted to the chest as well though at this time the dressing is clean and dry. There does not appear to be any bloody drainage noted. ABDOMEN: Soft, nontender, and nondistended. Bowel sounds are present in all 4 quadrants, and were normoactive. EXTREMITIES: No cyanosis or edema noted. Pulse, motor, and sensory is intact in all. Radial pulses and pedal pulses were 3+ bilaterally. INTEGUMENTARY: The patient's skin is pink, warm, and dry though she does have an area in her left abdominal intertriginous area that does appear to have some erythema and yeast noted. NEUROLOGIC: Patient is alert and oriented to person, place, time and situation. She is able to move all extremities. There does not appear to be any focal neurological deficits noted at this time. ASSESSMENT AND PLAN: 1. Left pleural effusion status post placement of a PleurX chest tube catheter by Dr. Paz. 2. Chest tube leakage for numbers 1 and 2. The patient has been evaluated by Dr. Bee who was on-call for surgical team this evening. They did replace the patient's dressing. The leakage that she had previously is under control at this time. Dr. Bee noted that a chest x-ray showed findings consistent with postoperative period and serosanguineous drainage from her dressing. He also noted that they did attempt to place Pleur-Evac drain, though they were unable to a drainage catheter device. He did recommend observing her overnight with pulmonary toileting, pain control, and repeat chest x-ray in the morning. The patient at this time is hemodynamically stable. Her blood pressure and other vital signs are within normal limits. Hemoglobin and hematocrit are stable. We will hold her Xarelto at this time. This will be started back at the discretion of the surgical team and her primary care physician Dr. Hamilton. We have ordered for repeat CBC and chest x-ray in the morning. We will await surgical teams further evaluation and recommendations for management. 3. Chronic atrial fibrillation. We will continue Cardizem and metoprolol though [*]we are holding her anticoagulant Xarelto given her recent chest tube placement and leakage. 4. History of left breast cancer status post chemotherapy and radiation therapy. 5. Hypertension. We have continued the patient's metoprolol and Cardizem for her atrial fibrillation. At this time, her blood pressure is stable with the last reading of 105/60 though at this time we are going to hold her Cozaar. The patient has had an increase in her creatinine from 0.9 to 1.2 over the last 1 to 2 months. We will repeat a BMP in the morning for re-evaluation though at this time her blood pressure is within normal limits. We will continue to follow. 6. Deep vein thrombosis prophylaxis. The patient normally does take anticoagulant of Xarelto for history of chronic atrial fibrillation as well as DVT's though currently she did have recent chest Pleur-X chest tube catheter placement and chest tube leakage. Even if we are holding anticoagulants, we will do SCD's for DVT prophylaxis. 7. She has been placed on the surgical floor with telemetry. She will have vital signs q.4 hours. Do strict intake and output. Aggressive pulmonary toileting with incentive spirometry. We will repeat a CBC and BMP in the more. Further orders and recommendations pending hospital course, diagnostic studies and physician evaluations. Dictated by ALETHEA Leal for Alexia Eaton MD cc: MD Fredis Javier MD
[2019-02-16] MEDS ORDERED: SOLU-MEDROL IV ONE (08:36)
[2019-02-16] MEDS ORDERED: ARICEPT PO SCH (09:00)
[2019-02-16] MEDS ORDERED: ZANTAC PO SCH (09:00)
[2019-02-16] MEDS ORDERED: SEPTRA DS PO SCH (09:00)
[2019-02-16] MEDS ORDERED: CARDIZEM CD PO SCH (09:00)
[2019-02-16] MEDS: ALBUTEROL NEB INH SCH ×2 (09:56→15:39)
--- NOTE | 2019-02-16 12:19 | GENERAL SURGERY PROGRESS NOTE ---
DATE: 02/16/2019 SUBJECTIVE: The patient came back in overnight for significant drainage around her catheter. The dressing has been changed. Currently, she feels better. OBJECTIVE: She is afebrile. Vital signs are stable. General: She is awake and alert, oriented x3. No acute distress. Her left chest dressing was examined. There is a small amount of drainage. It does not appear to be draining significantly. I have changed this bandage and we will recheck it later this afternoon. Imaging: Chest x-ray looks improved. No large pneumothorax or pleural effusion. ASSESSMENT/PLAN: An 83-year-old female status post left thoracoscopy, drainage of pleural effusion, and placement of chest tube. If her dressing is saturated this afternoon, then I will take back to the operating room for a suture repair of her intercostal incision to slow the drainage. If it is fairly dry, then we will recommend discharge home and follow up with me as scheduled before. cc: MD Fredis Menezes MD
[2019-02-16 15:51] VITALS: BP 99/74
[2019-02-16] MEDS ORDERED: TOPROL XL PO SCH (21:00)
== END 2019-02-16 18:47 | disposition home health service (06) ==
LOC: ED 19:21 → 4N 02-16 → INTOOBSV 02-16 → SUATTDRO 02-16
PROVIDERS: ADMIT Internal Medicine; ATTEND Internal Medicine
CPT/HCPCS: 71010; 71020; 71045; 71046; 80048; 80053; 81001; 85025; 94640; 94761; 94799; A9270; J2920